=== PATIENT | female | born 1975 | race Hispanic/Latino ===

== ENCOUNTER 2017-10-04 08:57 | Emergency (ER) | payer MEDICAID, SELFPAY ==
[2017-10-04 08:57] VITALS: BP 136/104; PULSE 68; RESP 18; TEMP 36.6; O2SAT 96; BMI 34.4
--- NOTE | 2017-10-04 09:32 | ED.DCSUM_ITS ---
- ER Visit Summary Date of Service: 10/04/17 Chief Complaint: Upper extremity pain History of Present Illness: The patient is a 42 F who is right hand dominant presents with pain left upper extremity. She states the pain, which is chronic , got worse after carrying a 20 pound bag with her left upper extremity. There is no history of direct trauma. She denies paresthesia, anesthesia or motor weakness. She is reluctant to move the left upper extremity. She denies any chest discomfort or shortness of breath. She has no other complaints. She understands Urdu. Her responses were in Haitian. Son interpreted what she said for me. Based on review of old records there is a history of type 2 diabetes. She has no allergies to NSAIDs. She has no history of renal dysfunction. Last creatinine was 0.62. Physical Examination: Vital signs remarkable for blood pressure 136/100. She did not resisted any attempted passive range of motion by me. Axillary, median radial ulnar function intact. She is able to AB duct to 90?. She is able to internally and externally rotate at the shoulder. She is able to flex and extend at the elbow. She is able to supinate and pronate. There is no point tenderness appreciated. DTR 1+ at the biceps, brachialis and triceps. There is no pain in a radicular pattern. The pain shoots from her wrist to her shoulder. Heart is regular without murmur, gallop or rub. S1 and S2 are normal. Lungs are clear to auscultation with good movement of air bilaterally. Test Results: None were obtained, nor are any indicated Emergency Department Course and Treatment: Patient has musculoskeletal discomfort secondary to muscle strain. She received a dose of Naprosyn in department and a prescription for Naprosyn. She was informed if her pain is no better she should follow-up with Dr. Cruz. Treatment Plan: Outpatient follow-up as needed, appropriate home-going instructions and ice, rest and anti-inflammatory medication. Disposition: Discharged home with son Impression: Left upper extremity pain secondary to muscle strain This note was generated with [employer] software. It may contain incorrect words, spelling, and punctuation that were not noted in review of the chart prior to signing ED Disposition - Plan for ED Patient: Disposition: Home or Assisted Living Chief Complaint: Upper Extremity Injury Instructions: ED Strain Muscle Ext Prescriptions: Naproxen [Naprosyn] 500 mg PO BID #10 tab Referrals: Ministerio Irene MD [Primary Care Provider] - 3-5 Days if not improving
[2017-10-04] MEDS: Naproxen 250 MG Tablet 500 MG PO (09:50)
== END 2017-10-04 09:51 | disposition home or self-care (01) ==
PROVIDERS: Emergency Provider Emergency Medicine; Family Provider Family Medicine; PCP Family Medicine
DX: S46.912A Strain of unspecified muscle, fascia and tendon at shoulder and upper arm level, left arm, initial encounter (principal); X50.0XXA Overexertion from strenuous movement or load, initial encounter; Y93.9 Activity, unspecified; Y92.9 Unspecified place or not applicable; Y99.9 Unspecified external cause status; G89.29 Other chronic pain; E11.9 Type 2 diabetes mellitus without complications; Z79.899 Other long term (current) drug therapy
CPT/HCPCS: 99283

== ENCOUNTER 2018-07-27 12:24 | Emergency (ER) | payer MEDICAID, SELFPAY ==
[2018-07-27 12:24] VITALS: BP 134/72; PULSE 66; RESP 18; TEMP 36.3; O2SAT 98; BMI 35.4
--- NOTE | 2018-07-27 12:52 | RAD_ITS ---
STUDY: X-RAY - CERVICAL SPINE REASON FOR EXAM: Female, 43 years old. Fall. Neck pain. TECHNIQUE: 5 view(s) of the cervical spine were obtained. COMPARISON: None FINDINGS: Normal anterior atlantoaxial articulation. Normal odontoid process. Normal cervical lordosis. Normal vertebral bodies and endplates. There is minimal intervertebral disc space narrowing at C4-5 and C5-6 with small osteophytes. There is diffuse mild uncovertebral and facet sclerosis. The soft tissue structures are unremarkable. RAD/Cerv Spine 2 or 3 Views IMPRESSION: Mild cervical spondylosis with no acute abnormality. Electronically Signed: Dagoberto Gudino MD at 14:18 EST , Service support ,
--- NOTE | 2018-07-27 14:40 | ED.VISSUMM ---
- ER Visit Summary Date of Service: 07/27/18 Chief Complaint: [Fall and neck pain] History of Present Illness: The patient is a 43 F [presents to the emergency department complaining of a fall that occurred yesterday around 11 AM. Patient states that she slipped and fell in the snow and hit her head. There is no loss of consciousness. Patient initially did not feel that she was injured. Progressively patient developed more more discomfort in her neck. Patient also has some discomfort in the both wrists but states that she did not injure her wrist during the fall. Nuys any chest pain or abdominal pain. She denies any back pain otherwise.] Physical Examination: [HEENT-PERRLA, EOMI. Cranial nerves II through XII grossly intact. TMs clear. Mucous membranes moist. No adenopathy. Patient has mild diffuse C-spine tenderness on palpation. Patient has tenderness over the paraspinal musculature bilaterally. Patient has tenderness over the both sternocleidomastoids bilaterally. Cardiovascular-regular rate and rhythm without murmur or ectopy Lungs-clear to auscultation, chest wall stable without crepitus or subcu emphysema Abdomen-normoactive bowel sounds, soft, nontender, no rebound or rigidity, no peritoneal signs. Extremities-intact ?4, normal range of motion, normal pulses, atraumatic. Evaluation of both wrists reveals some mild diffuse tenderness. There is no soft tissue swelling. There is no ecchymosis or bruising. She has normal range of motion flexion extension of the wrist.] Test Results: [X-rays of the spine were obtained which were negative for fracture. Patient had some mild spondylosis.] Emergency Department Course and Treatment: [Patient was given a dose of ibuprofen.] Treatment Plan: [Patient given a prescription for ibuprofen and Flexeril.] Disposition: [Discharged home in stable condition. Advised to follow-up with primary care physician within next 5-7 days.] Impression: [Mechanical fall Cervical strain Bilateral wrist sprains] This note was generated with [employer] dictation software. It may contain incorrect words, spelling, and punctuation that were not noted in review of the chart prior to signing ED Disposition - Plan for ED Patient: Chief Complaint: Fall Referrals: Ministerio Irene MD [Primary Care Provider] -
--- NOTE | 2018-07-27 14:43 | ED.DCSUM_ITS ---
- ER Visit Summary Date of Service: 07/27/18 Chief Complaint: [Fall and neck pain] History of Present Illness: The patient is a 43 F [presents to the emergency department complaining of a fall that occurred yesterday around 11 AM. Patient states that she slipped and fell in the snow and hit her head. There is no loss of consciousness. Patient initially did not feel that she was injured. Progressively patient developed more more discomfort in her neck. Patient also has some discomfort in the both wrists but states that she did not injure her wrist during the fall. Nuys any chest pain or abdominal pain. She denies any back pain otherwise.] Physical Examination: [HEENT-PERRLA, EOMI. Cranial nerves II through XII grossly intact. TMs clear. Mucous membranes moist. No adenopathy. Patient has mild diffuse C-spine tenderness on palpation. Patient has tenderness over the paraspinal musculature bilaterally. Patient has tenderness over the both sternocleidomastoids bilaterally. Cardiovascular-regular rate and rhythm without murmur or ectopy Lungs-clear to auscultation, chest wall stable without crepitus or subcu emphysema Abdomen-normoactive bowel sounds, soft, nontender, no rebound or rigidity, no peritoneal signs. Extremities-intact ?4, normal range of motion, normal pulses, atraumatic. Evaluation of both wrists reveals some mild diffuse tenderness. There is no soft tissue swelling. There is no ecchymosis or bruising. She has normal range of motion flexion extension of the wrist.] Test Results: [X-rays of the spine were obtained which were negative for fracture. Patient had some mild spondylosis.] Emergency Department Course and Treatment: [Patient was given a dose of ibuprofen.] Treatment Plan: [Patient given a prescription for ibuprofen and Flexeril.] Disposition: [Discharged home in stable condition. Advised to follow-up with primary care physician within next 5-7 days.] Impression: [Mechanical fall Cervical strain Bilateral wrist sprains] This note was generated with [employer]ation software. It may contain incorrect words, spelling, and punctuation that were not noted in review of the chart p rior to signing ED Disposition - Plan for ED Patient: Chief Complaint: Fall Referrals: Ministerio Irene MD [Primary Care Provider] -
--- NOTE | 2018-07-27 14:43 | ED.DEP ---
ED Disposition - Plan for ED Patient: Chief Complaint: Fall Instructions: ED Mechanical Fall, ED Sprain Strain Neck, ED Sprain Wrist Prescriptions: Ibuprofen [Motrin] 800 mg PO TID PRN PRN #20 tab PRN Reason: Pain Cyclobenzaprine [Flexeril] 10 mg PO TID PRN #20 tab PRN Reason: Muscle Spasm Referrals: Ministerio Irene MD [Primary Care Provider] - 5-7 Days
[2018-07-27 14:51] VITALS: O2SAT 97
[2018-07-27] MEDS: Ibuprofen 600 MG Tablet PO (14:55)
[2018-07-27 14:56] VITALS: BP 125/87; PULSE 72; PULSE 78; RESP 16; O2SAT 97
--- OUTSIDE RECORDS SUMMARY | 2018-10-01 03:11 | XMS RPT_ITS ---
:1975 Author Organization OHIP Care Team Providers Name Role Phone NUNO IRENE Attending Unavailable NUNO IRENE Referring Unavailable SLIM CROW Attending Unavailable NUNO IRENE Referring Unavailable NUNO IRENE Attending Unavailable NUNO IRENE Attending Unavailable NUNO IRENE Referring Unavailable NUNO IRENE Referring Unavailable NUNO IRENE Attending Unavailable NUNO IRENE Attending Unavailable NUNO IRENE Referring Unavailable Ginger Dodson Attending Unavailable Finn Mayorga Referring Unavailable Nuno Irene Primary Care Unavailable Ginger Dodson Attending Unavailable Finn Mayorga Referring Unavailable Nuno Irene Primary Care Unavailable Ginger Dodson Attending Unavailable Finn Mayorga Referring Unavailable Nuno Irene Primary Care Unavailable Ginger Dodson Attending Unavailable Finn Mayorga Referring Unavailable Nuno Irene Primary Care Unavailable Nuno Irene Attending Unavailable Finn Mayorga Referring Unavailable Teto Nuno Primary Care Unavailable Ginger Dodson Attending Unavailable Finn Mayorga Referring Unavailable Teto Nuno Primary Care Unavailable [place], Nuno Primary Care Unavailable Melecio Bull Attending Unavailable TetoNuno varghese Primary Care Unavailable Dawit Galvan Attending Unavailable PROBLEMS PROBLEMS DATE TYPE CONDITION / CODE ATTENDING STATUS SOURCE 06/13/2018 Admitting Encntr screen Nuno Irene Active [facility] Diagnosis mammogram for System malignant neoplasm of Repository breast / Z12.31(ICD-10) 05/22/2018 Admitting Human Ginger Dodson Active [facility] Diagnosis immunodeficiency System virus [HIV] disease / Repository B20(ICD-10) 05/22/2018 Admitting Metabolic syndrome / Ginger Dodson Active [facility] Diagnosis E88.81(ICD-10) System Repository 05/22/2018 Admitting Mixed hyperlipidemia Ginger Dodson Active [facility] Diagnosis / E78.2(ICD-10) System Repository 05/22/2018 Admitting Encounter for Ginger Dodson Active [facility] Diagnosis immunization / System Z23(ICD-10) Repository 02/10/2017 Active Type 2 diabetes NA Active [place] mellitus without Clinic Main complications / [place] E11.9(ICD-10) Repository 10/29/2015 Active Human NA Active [place] immunodeficiency [facility] Main virus (HIV) disease / [place] B20(ICD-10) Repository 10/05/2017 Active Mixed hyperlipidemia NA Active [place] / E78.2(ICD-10) Clinic Main [place] Repository 08/10/2017 Admitting Allergic rhinitis, Ginger Dodson Active [facility] Diagnosis unspecified / System J30.9(ICD-10) Repository PROCEDURES PROCEDURES No Procedure Records FoundRESULTS RESULTS DISCHARGE INSTRUCTION Observed: 07/27/2018 Status: F Source: [place] 2:45 PM [facility] REPOSITORY [facility] Medical Records Department [address] [place] [address] Discharge Instruction 07/27/18 1443 MR#: [id number] Acct: [id number] Name: MAURA HALLMAN L Rep #: [id number] : 1975 43 From: Melecio Bull DO PCP: Nuno Irene MD Status: REG ER ED Disposition - Plan for ED Patient: Chief Complaint: Fall Instructions: ED Mechanical Fall, ED Sprain Strain Neck, ED Sprain Wrist Prescriptions: Ibuprofen [Motrin] 800 mg PO TID PRN PRN #20 tab PRN Reason: Pain Cyclobenzaprine [Flexeril] 10 mg PO TID PRN #20 tab PRN Reason: Muscle Spasm Referrals: Nuno Irene MD [Primary Care Provider] - 5-7 Days What to do if you have Problems For any increased pain, shortness of breath, bleeding, nausea or vomiting, chest pain, or any unexpected problems, contact your Primary Care Provider. Call [facility] ([phone]) or report to the closest Emergency Room. Call 911 if necessary. 07/27/18 1445 <Electronically signed by Melecio Bull DO> Date Melecio Bull DO Cosigner Signature (If Indicated): Date CC: Nuno Irene MD EMERGENCY DEPARTMENT Observed: 07/27/2018 Status: F Source: [place] SUMMARY 2:43 PM [facility] REPOSITORY [facility] Medical Records Department [address] [facility] [place] [address] Emergency Department Summary 07/27/18 1440 MR#: [id number] Acct: [id number] Name: MAURA HALLAMN Rep #: [id number] : 1975 43 From: Melecio Bull DO PCP: Nuno Irene MD Status: REG ER - ER Visit Summary Date of Service: 07/27/18 Chief Complaint: [Fall and neck pain] History of Present Illness: The patient is a 43 F [presents to the emergency department complaining of a fall that occurred yesterday around 11 AM. Patient states that she slipped and fell in the snow and hit her head. There is no loss of consciousness. Patient initially did not feel that she was injured. Progressively patient developed more more discomfort in her neck. Patient also has some discomfort in the both wrists but states that she did not injure her wrist during the fall. [place] any chest pain or abdominal pain. She denies any back pain otherwise.] Physical Examination: [HEENT-PERRLA, EOMI. Cranial nerves II through XII grossly intact. TMs clear. Mucous membranes moist. No adenopathy. Patient has mild diffuse C-spine tenderness on palpation. Patient has tenderness over the paraspinal musculature bilaterally. Patient has tenderness over the both sternocleidomastoids bilaterally. Cardiovascular-regular rate and rhythm without murmur or ectopy Lungs-clear to auscultation, chest wall stable without crepitus or subcu emphysema Abdomen-normoactive bowel sounds, soft, nontender, no rebound or rigidity, no peritoneal signs. Extremities-intact 4, normal range of motion, normal pulses, atraumatic. Evaluation of both wrists reveals some mild diffuse tenderness. There is no soft tissue swelling. There is no ecchymosis or bruising. She has normal range of motion flexion extension of the wrist.] Test Results: [X-rays of the spine were obtained which were negative for fracture. Patient had some mild spondylosis.] Emergency Department Course and Treatment: [Patient was given a dose of ibuprofen.] Treatment Plan: [Patient given a prescription for ibuprofen and Flexeril.] Disposition: [Discharged home in stable condition. Advised to follow-up with primary care physician within next 5-7 days.] Impression: [Mechanical fall Cervical strain Bilateral wrist sprains] This note was generated with [employer] dictation software. It may contain incorrect words, spelling, and punctuation that were not noted in review of the chart prior to signing ED Disposition - Plan for ED Patient: Chief Complaint: Fall Referrals: Nuno Irene MD [Primary Care Provider] - What to do if you have Problems For any increased pain, shortness of breath, bleeding, nausea or vomiting, chest pain, or any unexpected problems, contact your Primary Care Provider. Call [facility] ([phone]) or report to the closest Emergency Room. Call 911 if necessary. 07/27/18 1447 <Electronically signed by Melecio Bull DO> Date Melecio Bull DO Cosigner Signature (If Indicated): Date CC: Nuno Irene MD CERV SPINE 2 OR 3 Observed: 07/27/2018 Status: F Source: [place] VIEWS 12:52 PM [facility] REPOSITORY [facility] Imaging Services [address] [place] [address] Cerv Spine 2 or 3 Views MR#: [id number] Acct: [id number] Name: MAURA HALLMAN Rep #: [id number] : 1975 F 43 From: Dagoberto Gudino MD PCP: Nuno Irene MD Status: REG ER Study: Cerv Spine 2 or 3 Views Date of Exam: 07/27/18 Exam# [id number] Ordering Dr: Melecio Bull DO STUDY: X-RAY - CERVICAL SPINE REASON FOR EXAM: Female, 43 years old. Fall. Neck pain. TECHNIQUE: 5 view(s) of the cervical spine were obtained. COMPARISON: None FINDINGS: Normal anterior atlantoaxial articulation. Normal odontoid process. Normal cervical lordosis. Normal vertebral bodies and endplates. There is minimal intervertebral disc space narrowing at C4-5 and C5- 6 with small osteophytes. There is diffuse mild uncovertebral and facet sclerosis. The soft tissue structures are unremarkable. RAD/Cerv Spine 2 or 3 Views IMPRESSION: Mild cervical spondylosis with no acute abnormality. Electronically Signed: Dagoberto Gudino MD at 14:18 EST , Service support , CC: Melecio Bull DO; Nuno Irene MD Textile Engineer: Signed MG BREAST TOMOSYNTHESIS Observed: 06/13/2018 Status: F Source: Sphere 3d [facility] 12:00 AM SYSTEM REPOSITORY Patient Name: MAURA HALLMAN Mammography Exam Date/Time 06/13/2018 12:58:11 EST Exam MG Breast Tomosynthesis BI Scr Ordering Physician NELSON IRENE Accession Number [id number] CPT4 Codes 76541 (MG Breast Tomosynthesis Scr Bl), 95708 (MG MAMMO 2D SCREENING) Reason For Exam screening Report PATIENT HISTORY: No known family history of cancer. Patient has never smoked. Patient's BMI is 36.0. TIME SINCE LAST MAMMOGRAM: Last mammogram was performed 1 year and 6 months ago. REASON FOR EXAM: screening, asymptomatic. PROCEDURE: MG BREAST TOMOSYNTHESIS BL SCR: JUNE 13, 2018 - 2D/3D Procedure 3D Bilateral CC and MLO view(s) were taken. 2D Bilateral CC and MLO view(s) were taken. Prior study comparison: December 23, 2016, bilateral MG breast tomosynthesis bl scr performed at [facility]. November 20, 2015, bilateral MG mammogram digital screening performed at [facility]. TISSUE DENSITY: There are scattered fibroglandular densities. . FINDINGS: No suspicious masses, architectural distortions or suspiciously clustered microcalcifications are identified. There is no evidence of skin thickening or nipple retraction. There are no significant changes when compared with prior studies. Markings on images: BB's = Nipples; skin lesions [place] = Palpable Line = Scar 2D digital mammography and tomosynthesis imaging were performed and reviewed with CAD. ASSESSMENT: Category 1 Negative No mammographic evidence of malignancy. RECOMMENDATION: Routine screening mammogram of both breasts in 1 year. Report Dictated on Cancer Risk Assessment: This risk assessment is based on patient provided information collected in a risk survey taken at the time of this examination. Lifetime breast cancer risk: 9.5% - If greater than or equal to 20%, consider annual mammogram and annual screening Breast MRI or follow up in high risk clinic. Is the patient at elevated risk based on the HBOC criteria? No (Hereditary Breast and Ovarian Cancer) - If yes, consider genetic counseling and testing with high risk follow up. HNPCC mutation risk ([place]osta Syndrome): 1% - if greater than or equal to 5%, consider genetic counseling, testing and screening colonoscopy. Final Signed Date and Time: 06/13/2018 5:04 pm Signed by: MD GREEN JENNIFER R HEMOGLOBIN A1C Collected: 06/04/2018 Status: F Source: [place] 10:09 AM [facility] REPOSITORY TYPE CODE TESTS RESULT OUT OF REFERENCE UNITS RANGE LAB HGBA1C 4.3-5.6 % High Hemoglobin A1c 7.0 Result Comment: [place] Diabetes Association guidelines indicate that patients with HgbA1c in the range 5.7-6.4% are at increased risk for development of diabetes, and intervention by lifestyle modification may be beneficial. HgbA1c greater or equal to 6.5% is considered diagnostic of diabetes. LAB HBA0 mg/dL Est. Average Glucose 154 Result Comment: eAG: (Estimated average glucose) is a calculated value from HgbA1c and is customer service representative teller of the average blood glucose level in the last 2-3 month period. Performed By: #### HBA1C, LIPB #### [facility] [address] [place], [place] [address] LIPID PANEL, BASIC Collected: 06/04/2018 Status: F Source: [place] 10:09 AM [facility] REPOSITORY TYPE CODE TESTS RESULT OUT OF REFERENCE UNITS RANGE LAB CHOL <200 mg/dL Cholesterol 164 Result Comment: <200 mg/dL, Desirable 200-239 mg/dL, Borderline high >239 mg/dL, High LAB TRIGLY <150 mg/dL Triglyceride 132 Result Comment: <150 mg/dL, Normal 150-199 mg/dL, Borderline high 200-499 mg/dL, High >499 mg/dL, Very high LAB HDL >39 mg/dL HDL-Cholesterol 41 Result Comment: 40-59 mg/dL, Acceptable >59 mg/dL, High: Negative risk factor for coronary heart disease <40 mg/dL, Low: Positive risk factor for coronary heart disease LAB LDL <100 mg/dL LDL-Cholesterol 97 Result Comment: <100 mg/dL, Optimal 100-129 mg/dL, Near optimal/above optimal 130-159 mg/dL, Borderline high 160-189 mg/dL, High >189 mg/dL, Very high Secondary prevention optimal LDL Cholesterol levels are recommended to be < 70 mg/dL LAB NONHDL <130 mg/dL Non HDL Cholesterol 123 Result Comment: <130 mg/dL, Optimal 130-159 mg/dL, Near optimal/above optimal 160-189 mg/dL, Borderline high 190-219 mg/dL, High >219 mg/dL, Very high Secondary prevention optimal non HDL Cholesterol levels are recommended to be < 100 mg/dL LAB FT hrs Fasting Time 12 LAB VLDL <30 mg/dL VLDL Cholesterol 26 LAB TCHDL <5.10 TC:HDL Ratio 4.00 LAB LDLHDL <2.54 LDL:HDL Ratio 2.37 Result Comment: Reference: 1. National Cholesterol Education Program ATP III Guideline At-A-Glance Quick Desk Reference: National Heart, Lung, and Blood [place]. National Institutes of Health. 2001: NIH Publication No. 01-3305. 2. An International Atherosclerosis Society position paper: global recommendations for the management of dyslipidemia: executive summary, Atherosclerosis. 2014: 232(2):410-413. Performed By: #### HBA1C, LIPB #### [facility] [address] [place], [place] [address] PROGRESS Observed: 05/30/2018 Status: COMPLETED Source: [place] 11:20 AM [facility] REPOSITORY O ID: [id number] Author: Nuno Irene Service: (none) Author Type: Physician Type: Progress Notes Filed: 05/30/2018 11:44 AM Note Text: Patient presents with: Diabetes: follow up HPI: Patient presents today for office visit for follow up. DM:sugars are doing well. She is juicing with aloe vera. Feels well. Not checking at home. ID:saw Dr. Dodson. Numbers are doing well. Tolerating meds. Recently had cold symptoms the last day. Some congestion. Was slightly chilly. Her right ear feels slightly irritated. Mild cough yesterday. No sore throat. HLD:using the lipid medicine. MEDICATIONS: Current Outpatient Prescriptions: metFORMIN (GLUCOPHAGE) 500 mg tablet Take 2 tablets by mouth daily with breakfast. upknulrhmrbk-lrzjvtqieu-pxwnifrhshqbw-tenofovir alafenamide (GENVOYA) [phone] mg per tablet Take 1 tablet by mouth daily with food. PRAVASTATIN SODIUM (PRAVASTATIN ORAL) Take 20 mg by mouth once daily. No current facility-administered medications for this visit. ALLERGIES: ALLERGIES No Known Allergies PAST MEDICAL HISTORY Diagnosis Date - Diabetes (HCC) - HIV (human immunodeficiency virus infection) (HCC) - Hyperlipidemia PAST SURGICAL HISTORY Procedure Laterality Date - DELIVERY ONLY , low transverse x 2 FAMILY HISTORY Problem Relation Age of Onset - Diabetes Mother - Stroke Father Social History Marital status: Single Spouse name: Years of education: Number of children: 2 Social History Main Topics Smoking status: Never Smoker Smokeless tobacco: Never Used Alcohol use: No Drug use: No Sexual activity: No Reviewed current medications, allergies, past medical history, surgical history, family history and social history today. REVIEW OF SYSTEMS CARDIOVASCULAR: Negative for chest pain, leg swelling, hypertension, CHF or palpitations GI: No nausea, vomiting, or diarrhea : No history of dysuria, frequency or incontinence All other reviewed and negative other than HPI. HEALTH MAINTENANCE: Reviewed health maintenance issues today and recommended the following in detail. Had a flu shot ADULT PREVNAR-13 due on 1994 VITALS: BP 120/62 Pulse 84 Temp 36.6 ?C (97.8 ?F) (Tympanic) Resp 20 Wt 89.9 kg (198 lb 3.2 oz) BMI 37.45 kg/m? Last 4 Encounter Wt Readings: Date: Wt: 05/30/2018 89.9 kg (198 lb 3.2 oz) 01/22/2018 91.2 kg (201 lb) 10/05/2017 93 kg (205 lb) 03/02/2017 90.9 kg (200 lb 6.4 oz) PHYSICAL EXAMINATION: General appearance: Well appearing, alert, in no acute distress, well-hydrated, well nourished. Skin: Skin color, texture, turgor normal, no suspicious rashes or lesions Head: Normocephalic, no masses, lesions, tenderness or abnormalities Mouth and throat negative. Ears: right ear canal is slightly red and painful when touching. tms ar eclear. Lungs: lungs clear to auscultation. No wheezing, rhonchi, rales Heart: RRR without murmur, gallop, or rubs. No ectopy Abdomen: Normal abdominal exam, Abdomen soft, non-tender. Bowel sounds normal. No masses, organomegaly Extremities: No deformities, edema, skin discoloration, clubbing or cyanosis. Good capillary refill. Musculoskeletal: No joint swelling, deformity, or tenderness Peripheral pulses: Normal ASSESSMENT/PLAN: 1. Mixed hyperlipidemia - ICD9: 272.2, ICD10: E78.2 (primary diagnosis) - to be determined upon return of lab results - Continue current medication. - LIPID PANEL BASIC 2. Controlled type 2 diabetes mellitus without complication, without long-term current use of insulin ([facility]) - ICD9: 250.00, ICD10: E11.9 Controlled. - Continue current medications - METFORMIN 500 MG TABLET - HGB A1C 3. HIV (human immunodeficiency virus infection) ([facility]) - ICD9: V08, ICD10: B20 - continue to follow with ID 4. URI, acute - ICD9: 465.9, ICD10: J06.9 - Discussed viral etiology and rationale for treatment. - Symptomatic treatment with prn analgesia - Supportive care with fluids and rest - Follow up in one week if symptoms persist or sooner if worsening of symptoms 5. Need for vaccination - ICD9: V05.9, ICD10: Z23 - PNEUMOCOCCAL-13 VACCINE PCV-13 6. Acute otitis externa of right ear, unspecified type - ICD9: 380.10, ICD10: H60.501 - Discussed risks and benefits of new medication with the patient. Advised them to call if any side effects or questions. - keep ear dry. - Call if symptoms worsen at all or if not better in one to two weeks - OTLNHAQS-ECUNQCAYF-AKVCTGGZC 3.5 MG-10,000 UNIT/ML-1 % EAR DROPS,SUSP Nuno Irene MD CNOV Observed: 05/30/2018 Status: COMPLETED Source: [place] 10:40 AM [facility] REPOSITORY Office Visit (FAMPWS) MAURA HALLMAN ([id number]) 1975 [facility] Date Time Provider Department 05/30/18 10:40 AM NUNO IRENE During your visit today, we recorded the following information about you: Temperature Pulse Respiration Blood pressure 97.8 degrees 84/minute 20/minute 120/62 Weight 89.9 kg Nuno Irene MD 05/30/2018 11:44 AM Signed Patient presents with: Diabetes: follow up HPI: Patient presents today for office visit for follow up. DM:sugars are doing well. She is juicing with aloe vera. Feels well. Not checking at home. ID:saw Dr. Dodson. Numbers are doing well. Tolerating meds. Recently had cold symptoms the last day. Some congestion. Was slightly chilly. Her right ear feels slightly irritated. Mild cough yesterday. No sore throat. HLD:using the lipid medicine. MEDICATIONS: Current Outpatient Prescriptions: metFORMIN (GLUCOPHAGE) 500 mg tablet Take 2 tablets by mouth daily with breakfast. ccxzvtgdpzny-enhnuiyywy-jenggxhwvyiyj-tenofovir alafenamide (GENVOYA) [phone] mg per tablet Take 1 tablet by mouth daily with food. PRAVASTATIN SODIUM (PRAVASTATIN ORAL) Take 20 mg by mouth once daily. No current facility-administered medications for this visit. ALLERGIES: ALLERGIES No Known Allergies PAST MEDICAL HISTORY Diagnosis Date - Diabetes (HCC) - HIV (human immunodeficiency virus infection) (HCC) - Hyperlipidemia PAST SURGICAL HISTORY Procedure Laterality Date - DELIVERY ONLY , low transverse x 2 FAMILY HISTORY Problem Relation Age of Onset - Diabetes Mother - Stroke Father Social History Marital status: Single Spouse name: Years of education: Number of children: 2 Social History Main Topics Smoking status: Never Smoker Smokeless tobacco: Never Used Alcohol use: No Drug use: No Sexual activity: No Reviewed current medications, allergies, past medical history, surgical history, family history and social history today. REVIEW OF SYSTEMS CARDIOVASCULAR: Negative for chest pain, leg swelling, hypertension, CHF or palpitations GI: No nausea, vomiting, or diarrhea : No history of dysuria, frequency or incontinence All other reviewed and negative other than HPI. HEALTH MAINTENANCE: Reviewed health maintenance issues today and recommended the following in detail. Had a flu shot ADULT PREVNAR-13 due on 1994 VITALS: BP 120/62 Pulse 84 Temp 36.6 ?C (97.8 ?F) (Tympanic) Resp 20 Wt 89.9 kg (198 lb 3.2 oz) BMI 37.45 kg/m? Last 4 Encounter Wt Readings: Date: Wt: 05/30/2018 89.9 kg (198 lb 3.2 oz) 01/22/2018 91.2 kg (201 lb) 10/05/2017 93 kg (205 lb) 03/02/2017 90.9 kg (200 lb 6.4 oz) PHYSICAL EXAMINATION: General appearance: Well appearing, alert, in no acute distress, well-hydrated, well nourished. Skin: Skin color, texture, turgor normal, no suspicious rashes or lesions Head: Normocephalic, no masses, lesions, tenderness or abnormalities Mouth and throat negative. Ears: right ear canal is slightly red and painful when touching. tms ar eclear. Lungs: lungs clear to auscultation. No wheezing, rhonchi, rales Heart: RRR without murmur, gallop, or rubs. No ectopy Abdomen: Normal abdominal exam, Abdomen soft, non-tender. Bowel sounds normal. No masses, organomegaly Extremities: No deformities, edema, skin discoloration, clubbing or cyanosis. Good capillary refill. Musculoskeletal: No joint swelling, deformity, or tenderness Peripheral pulses: Normal ASSESSMENT/PLAN: 1. Mixed hyperlipidemia - ICD9: 272.2, ICD10: E78.2 (primary diagnosis) - to be determined upon return of lab results - Continue current medication. - LIPID PANEL BASIC 2. Controlled type 2 diabetes mellitus without complication, without long-term current use of insulin ([facility]) - ICD9: 250.00, ICD10: E11.9 Controlled. - Continue current medications - METFORMIN 500 MG TABLET - HGB A1C 3. HIV (human immunodeficiency virus infection) ([facility]) - ICD9: V08, ICD10: B20 - continue to follow with ID 4. URI, acute - ICD9: 465.9, ICD10: J06.9 - Discussed viral etiology and rationale for treatment. - Symptomatic treatment with prn analgesia - Supportive care with fluids and rest - Follow up in one week if symptoms persist or sooner if worsening of symptoms 5. Need for vaccination - ICD9: V05.9, ICD10: Z23 - PNEUMOCOCCAL-13 VACCINE PCV-13 6. Acute otitis externa of right ear, unspecified type - ICD9: 380.10, ICD10: H60.501 - Discussed risks and benefits of new medication with the patient. Advised them to call if any side effects or questions. - keep ear dry. - Call if symptoms worsen at all or if not better in one to two weeks - JMUSUXII-ZOJEWDVUJ-VORCEKPHG 3.5 MG-10,000 UNIT/ML-1 % EAR DROPS,SUSP Nuno Irene MD Referring Provider: SELF [200] Allergies As of Date: 05/30/2018 (No Known Allergies) Date Reviewed: 05/30/2018 Reviewed by: Melonie Adams Ma - Fully Assessed Reason for Visit: Diabetes [34] Cmt: follow up Primary Visit Diagnosis:Mixed hyperlipidemia [E78.2] Other Visit Diagnoses:Controlled type 2 diabetes mellitus without complication, without long-term current use of insulin ([facility]) [E11.9] HIV (human immunodeficiency virus infection) ([facility]) [B20] URI, acute [J06.9] Need for vaccination [Z23] Acute otitis externa of right ear, unspecified type [H60.501] Order(s):metFORMIN (GLUCOPHAGE) 500 mg tabletTake 2 tablets by mouth daily with breakfast.Disp: 180 tabletRfl: 1 PNEUMOCOCCAL-13 VACCINE PCV-13 [[id number]] Order #: [id number] LIPID PANEL BASIC [SQLIPB] Order #: [id number] FUTURE HGB A1C [ROEOU0U] Order #: [id number] FUTURE halkiwye-xfzkqcqwq-rhrnrkyzfipqsr (CORTISPORIN) 3.5-10,000-1 mg/mL-unit/mL-% otic suspensionUse 3 Drops in the right ear four times daily.Disp: 1 BottleRfl: 0 Prescriptions as of 05/30/2018 Sig: METFORMIN 500 MG TABLET Take 2 tablets by mouth daily* ELVITEG 150 MG-COB 150 MG-EMT* Take 1 tablet by mouth daily * PRAVASTATIN ORAL Take 20 mg by mouth once marshall* OWNDZAHN-PRTSXDEED-JVSCASLIN * Use 3 Drops in the right ear * Problem List As Of Date 05/30/2018 Noted Resolved Prediabetes [R73.03] INVALID FOR*02/10/2017 HIV (human immunodeficiency virus infection) (H* Hyperlipidemia [E78.5] Memory loss [R41.3] INVALID FOR* Controlled type 2 diabetes mellitus without com*INVALID FOR* DM (diabetes mellitus) (HCC) [E11.9] 10/05/2017 Eyelid lesion, benign [H02.9] INVALID FOR* More... Prescriptions ordered this encounter Disp Refills Start End METFORMIN 500 MG TABLET 180 * 1 05/30/2018 08/28/2018 Route: ORAL Sig: Take 2 tablets by mouth daily with breakfast. [id number] 3.5 MG-* 1 Mek[place]* 0 05/30/2018 Route: RIGHT EAR Sig: Use 3 Drops in the right ear four times daily. Medications Discontinued During This Encounter erythromycin ophthalmic ointment 1 Tu* 0 10/18/2017 05/30/2018 Route: LEFT EYE Sig: Use 1 application in the left eye once daily. Disc: Course of therapy completed omeprazole (PRILOSEC) 20 mg capsule 30 c* 3 02/08/2017 05/30/2018 Route: ORAL Sig: Take 1 capsule by mouth daily before breakfast. 1/2 hr before meal. Disc: Course of therapy completed loratadine 10 mg cap 05/30/2018 Class: Historical Med Route: ORAL Sig: Take by mouth. Disc: Course of therapy completed metFORMIN (GLUCOPHAGE) 500 mg tablet 180 * 1 02/13/2018 05/30/2018 Route: ORAL Sig: Take 2 tablets by mouth daily with breakfast. Disc: Reason for discontinue is not on file. Disposition: Return in about 3 months (around 08/30/2018). Follow-up and Disposition History Recorded Encounter Status:Closed by NUNO IRENE MD on 05/30/18 URINALYSIS,MACRO Collected: 05/07/2018 Status: F Source: [place] [facility] 12:49 PM SYSTEM REPOSITORY TYPE CODE TESTS RESULT OUT OF REFERENCE UNITS RANGE LAB APPUR Clear NA Appearance Clear LAB COLUR Lt. Yellow NA Color Yellow LAB USG 1.005-1.030 NA Specific Normal [place],Urine 1.015 LAB UPH 5.0-8.0 NA pH,Urine Normal 7.0 LAB ULUK Negative NA Leukocytes NEG LAB UNIT Negative NA Nitrites NEG LAB UPRO Negative mg/dL Total Protein,Urine NEG LAB UGLU Negative mg/dL Glucose,Urine NORM LAB UKET Negative mg/dL Ketone,Urine NEG LAB UURO 0-1 mg/dL Urobilinogen NORM LAB UBIL Negative NA Bilirubin,Ur NEG LAB UBLD Negative {RBC}/uL Occult Blood,Ur NEG Performed By: #### UAMAC #### [employer] [address] [place] [id number] HEMOGRAM W/ AUTODIFF Collected: 05/07/2018 Status: F Source: [place] 12:18 PM SYSTEM REPOSITORY TYPE CODE TESTS RESULT OUT OF REFERENCE UNITS RANGE LAB IWBC 3.6-10.7 10*3/uL WBC Normal 7.9 LAB RBC 3.80-5.20 10*6/uL RBC Normal 4.62 LAB HGB 11.7-16.0 g/dL Hemoglobin Normal 12.8 LAB HCT 35.0-47.0 % Hematocrit Normal 37.5 LAB MCV 79.0-98.0 fL MCV Normal 81.1 LAB MCH 26.0-34.0 pg MCH Normal 27.7 LAB MCHC 32.0-36.0 % MCHC Normal 34.1 LAB RDW 11.5-14.5 % RDW High 15.5 LAB PLT 140-440 10*3/uL Platelet Normal 218 LAB MPV 7.4-10.4 fL MPV Normal 8.8 LAB GRAN% 40.0-80.0 % Granulocytes Normal 67.6 LAB LYMP% 20.0-40.0 % Lymphocytes Normal 24.8 LAB MONO% 2.0-10.0 % Monocytes Normal 4.4 LAB EOS% 1.0-6.0 % Eosinophils Normal 2.7 LAB BAS% 0.0-2.0 % Basophils Normal 0.5 LAB ANC 1.8-7.0 10*3/uL Abs Normal Neutrophile Cnt 5.4 LAB ALC 1.0-4.3 10*3/uL Abs Lymph Cnt Normal 2.0 LAB AMC 0.0-0.8 10*3/uL Abs Monocyte Normal Cnt 0.3 LAB AEC 0.0-0.5 10*3/uL Abs Eosin Cnt Normal 0.2 LAB ABC 0.0-0.2 10*3/uL Abs Baso Cnt Normal 0.0 Performed By: #### HEMDF, LIPD2, CMP3, CD4, HIVQ #### [employer] [address] [place] [phone] LIPID PANEL Collected: 05/07/2018 Status: F Source: [facility] 12:18 PM SYSTEM REPOSITORY TYPE CODE TESTS RESULT OUT OF RANGE REFERENCE UNITS LAB 3CHOL < 200 mg/dL Cholesterol Abnormal 214 LAB 3TRIG <150 mg/dL Abnormal Triglyceride 189 LAB HDLC 40-60 mg/dL Normal HDL Cholesterol 48 LAB LDL4 <100 mg/dL Low Density Abnormal Lipoprotein 128 LAB CHLHD NA Chol/HDL 4 Result Comment: Ref Range: < 3 Low Risk for CHD 3-6 Mod Risk for CHD > 6 High Risk for CHD Performed By: #### HEMDF, LIPD2, CMP3, CD4, HIVQ #### [facility] [employer] [address] [phone] COMP METABOLIC PANEL Collected: 05/07/2018 Status: F Source: [place] 12:18 PM SYSTEM REPOSITORY TYPE CODE TESTS RESULT OUT OF RANGE REFERENCE UNITS LAB NA3 137-145 mmol/L Sodium Normal 138 LAB K3 3.5-5.1 mmol/L Normal Potassium 4.4 LAB CL3 98-107 mmol/L Chloride Normal 102 LAB CO23 22-30 mmol/L Carbon Normal Dioxide 25 LAB ANIN3 NA Anion Gap 10 LAB GLUC3 70-100 mg/dL High Glucose 130 LAB BUN3 7-20 mg/dL Urea Normal Nitrogen 10 LAB CRET3 0.52-1.25 mg/dL Low Creatinine 0.49 LAB GF3BR >60 mL/min eGFR > 60.0 LAB GF3WR >60 mL/min eGFR OTHER > 60.0 Result Comment: Source- MDRD equation with creatinine calibration to IDMS(NKDEP) eGFR not recommended for drug dose adjustment LAB CA3 8.4-10.4 mg/dL Calcium Normal 9.3 LAB ALB3 3.5-5.0 g/dL Albumin, Serum Normal 4.5 LAB TP3 6.3-8.2 g/dL Total Protein Normal 7.2 LAB BILT3 0.2-1.3 mg/dL Normal Bilirubin,Total 0.4 LAB ALKP3 38-126 U/L Alkaline Normal Phosphatase 119 LAB ALT3 13-69 U/L ALT (SGPT) Normal 61 LAB AST3 15-46 U/L AST (SGOT) Normal 35 Performed By: #### HEMDF, LIPD2, CMP3, CD4, HIVQ #### [facility] [employer] [facility] [address] [place] [address] CD4 PROFILE Collected: 05/07/2018 Status: F Source: [facility] 12:18 PM SYSTEM REPOSITORY TYPE CODE TESTS RESULT OUT OF RANGE REFERENCE UNITS LAB CD3% 61.0-83.0 % Normal CD3% 75.5 LAB CD3A 744-3556 /uL Normal CD3 Absolute 1290 Cnt LAB CD4% 32.5-62.0 % Normal CD3/CD4%: 42.3 LAB CD4A 390-2782 /uL Normal CD3/CD4 723 Absolute Cnt Performed By: #### HEMDF, LIPD2, CMP3, CD4, HIVQ #### [employer] [facility] [address] [phone] HIV RNA QUANT Collected: 05/07/2018 Status: F Source: [facility] (VIRAL LOAD) 12:18 PM SYSTEM REPOSITORY TYPE CODE TESTS RESULT OUT OF RANGE REFERENCE UNITS LAB HIVC <20 {copies}/mL Normal HIV NONE DETECTED RNA Quant LAB HIVL <1.30 {Log_copies }/mL Normal HIV NONE DETECTED RNA Quant Result Comment: The linear detection limit for this assay is 20 HIV Copies/mL. A result of <20 Copies (<1.30 Log Copies) indicates that HIV was detected, but at a level below the linear cutoff. A result of None Detected means that no HIV-1 was detected. This test is performed via rtPCR methodology. Performed By: #### HEMDF, LIPD2, CMP3, CD4, HIVQ #### [facility] [address] [phone] XR CHEST 2V FRONTAL/LAT Observed: 02/12/2018 Status: F Source: [place] 10:40 AM [facility] REPOSITORY * * *Final Report* * * DATE OF EXAM: Feb 12 2018 10:40AM WOX [id number] - XR CHEST 2V FRONTAL/LAT / PROCEDURE REASON: Human immunodeficiency virus (HIV) disease * * * * Physician Interpretation * * * * PA and lateral views of the chest are reviewed without previous comparison films. The cardiac size is not enlarged. The lung jimenez are clear. There is no evidence of pleural fluid. The bony thorax appears intact. IMPRESSION: No acute process. Textile Engineer: PSCB Transcribe Date/Time: Feb 12 2018 11:18A Dictated by : FLYNN ABDI MD This examination was interpreted and the report reviewed and electronically signed by: FLYNN ABDI MD on Feb 12 2018 11:18AM EST [id number] Observed: 02/12/2018 Status: COMPLETED Source: [place] 10:29 AM [facility] REPOSITORY HNO ID: [id number] Author: Glory Ferreira (Rt) Xochilt Tolbert Service: (none) Author Type: Portfolio Analyst Type: Progress Notes Filed: 02/12/2018 10:40 AM Note Text: Radiology Service Progress Note PATIENT NAME: Maura Hallman DATE OF SERVICE: February 12, 2018 TIME: 10:29 AM PATIENT IDENTITY VERIFICATION COMPLETED USING TWO (2) METHODS: Patient confirmed name verbally and Date of . PATIENT GENDER DATA: Female. status: : No status: NO. PATIENT RELEVANT IMPLANT DATA REVIEWED: Not Applicable RADIOLOGY DEPARTMENT: General X-ray: Exam(s) Completed: Chest X-Ray PERIPHERAL IV DATA: Not applicable SIGNED BY: RT Zara February 12, 2018 10:29 AM CBC AND DIFFERENTIAL Collected: 02/12/2018 Status: F Source: [place] 10:16 AM [facility] REPOSITORY TYPE CODE TESTS RESULT OUT OF REFERENCE UNITS RANGE LAB WBC 3.70-11.00 k/uL WBC 7.94 LAB RBC 3.90-5.20 m/uL RBC 4.56 LAB HGB 11.5-15.5 g/dL Hemoglobin 12.1 LAB HCT 36.0-46.0 % Hematocrit 39.6 LAB MCV 80.0-100.0 fL MCV 86.8 LAB MCH 26.0-34.0 pG MCH 26.5 LAB MCHC 30.5-36.0 g/dL MCHC 30.6 LAB RDWCV 11.5-15.0 % RDW-CV 14.3 LAB PLTCT 150-400 k/uL Platelet Count 233 LAB MPV 9.0-12.7 fL MPV 10.4 LAB ANEUT % Neut% 69.4 LAB AANEUT 1.45-7.50 k/uL Abs Neut 5.49 LAB ALYMP % Lymph% 23.7 LAB AALYMP 1.00-4.00 k/uL Abs Lymph 1.88 LAB AMONO % [place]% 4.4 LAB AAMONO <0.87 k/uL Abs [place] 0.35 LAB AEOS % Eosin% 2.0 LAB AAEOS <0.46 k/uL Abs Eosin 0.16 LAB ABASO % Baso% 0.5 LAB AABASO <0.11 k/uL Abs Baso 0.04 LAB AUNRBC 0 /100 WBC NRBCs 0.0 LAB ABNRBC <0.01 k/uL Absolute nRBC <0.01 LAB DTYP DTYPE Auto Diff Performed By: #### CBCDIF, HBA1C, CMP, HIVRNA #### [facility] [employer] [address] [id number] HEMOGLOBIN A1C Collected: 02/12/2018 Status: F Source: [place] 10:16 AM [facility] REPOSITORY TYPE CODE TESTS RESULT OUT OF REFERENCE UNITS RANGE LAB HGBA1C 4.3-5.6 % High Hemoglobin A1c 7.4 LAB HBA0 mg/dL Est. Average Glucose 166 Result Comment: eAG: (Estimated average glucose) is a calculated value from HgbA1c and is customer service representative teller of the average blood glucose level in the last 2-3 month period. Performed By: #### CBCDIF, HBA1C, CMP, HIVRNA #### [facility] [employer] [address] [address] COMP METABOLIC PANEL Collected: 02/12/2018 Status: F Source: [place] 10:16 AM [facility] REPOSITORY TYPE CODE TESTS RESULT OUT OF REFERENCE UNITS RANGE LAB TP 6.3-8.0 g/dL Protein, Total 7.2 LAB ALB 3.9-4.9 g/dL Albumin 4.1 LAB CA 8.5-10.2 mg/dL Calcium, Total 9.4 LAB TBIL 0.2-1.3 mg/dL Bilirubin, Total 0.3 LAB ALKP 32-117 U/L Alkaline Phosphatase 111 LAB AST 13-35 U/L AST 30 LAB GLU 74-99 mg/dL Glucose High 133 Result Comment: The [place] Diabetes Association (ADA) provides guidance for cutoff values for fasting glucose and random glucose. The ADA defines fasting as no caloric intake for at least 8 hours. Fas ting plasma glucose results between 100 to 125 mg/dL indicate increased risk for diabetes (prediabetes). Fasting plasma glucose results greater than or equal to 126 mg/dL meet the criteria for diagnosis of diabetes. In the absence of unequivocal hyperglycemia, results should be confirmed by repeat testing. In a patient with classic symptoms of hyperglycemia or hyperglycemic crisis, random plasma glucose results greater than or equal to 200 mg/dL meet the criteria for diagnosis of diabetes. Reference: Standards of Medical Care in Diabetes 2016, [place] Diabetes Association. Diabetes Care. 2016.39(Suppl 1). LAB BUN 7-21 mg/dL BUN 9 LAB CRET 0.58-0.96 mg/dL Low Creatinine 0.55 LAB NA 136-144 mmol/L Sodium 139 LAB K 3.7-5.1 mmol/L Potassium 4.4 LAB CL 97-105 mmol/L Chloride 102 LAB CO2 22-30 mmol/L CO2 26 LAB AGAP 9-18 mmol/L Anion Gap 11 LAB ALT 7-38 U/L ALT High 45 LAB GFRAA eGFR- Amer. >60 LAB GFRNAA . eGFR-All Other Races >60 Result Comment: eGFR (Estimated GFR) Units of measure: mL/min/1.73 meters squared eGFR is derived from the reexpressed MDRD Study equation using the following parameters: serum creatinine, age, gender and race. The creatinine assay has been calibrated to be traceable to IDMS. An eGFR <60 mL/min/1.73m2 for >3 months is consistent with chronic kidney disease. Refer to KDOQI guidelines for clinical interpretation. In patients with unstable renal function, e.g. those with acute kidney injury, the eGFR may not accurately reflect actual GFR. Performed By: #### CBCDIF, HBA1C, CMP, HIVRNA #### [facility] [employer] [address] [place] [phone] HIV QUANT RNA BY Collected: 02/12/2018 Status: F Source: [place] [facility] 10:16 AM [facility] REPOSITORY TYPE CODE TESTS RESULT OUT OF RANGE REFERENCE UNITS LAB HIVRNA copies/mL Detectable Abnormal for HIV-1 RNA by Alert HIV Quant PCR, <20 RNA by PCR copies/mL, not quantifiable Result Comment: INTERPRETATION: Positive for HIV-1 RNA by PCR Linear range of assay: 20 copies/mL to 10,000,000 copies/ml. (NOTE) HIV Information: [place] Rev. Code 3701.243(E): This information has been disclosed to you from confidential records protected from disclosure by state law. You shall make no further disclosure of this information without the specific, written, and informed release of the individual to whom it pertains, or as otherwise permitted by state law. A general authorization for the release of medical or other information is not sufficient for the purpose of the release of HIV test results or diagnoses. Performed By: #### CBCDIF, HBA1C, CMP, HIVRNA #### [facility] [employer] [address] [place], [place] [address] IMMUNODEFICIENCY CDC Collected: 02/12/2018 Status: F Source: [place] 10:15 AM [facility] REPOSITORY TYPE CODE TESTS RESULT OUT OF REFERENCE UNITS RANGE LAB HCD3P 60-89 % 73 CD3+ T Cell % LAB HCD3N 958-2388 Cells/uL 1346 CD3+ T Cell No. LAB HCD4P 34-61 % 40 CD4+CD3+ T Cell % LAB HCD4N 533-1674 Cells/uL 735 CD4+CD3+ T Cell No. LAB HCD8P 10-41 % 31 CD3+CD8+ T Cell % LAB HCD8N 175-958 Cells/uL 579 CD3+CD8+ T Cell No. LAB HCD19P 5-22 % 22 CD19+ B Cell % LAB HCD19N 75-660 Cells/uL 400 CD19+ B Cell No. LAB HNKP 5-25 % 5 NK Cell % LAB HNKN 102-565 Cells/uL 97 Low NK Cell No. LAB H48RAT 1.10-3.25 1.27 CD4/CD8 Ratio LAB HCOMNT Clinical interpretation of Immunodef. lymphocyte subsets Comment must be made with caution. Relative and absolute values may be profoundly affected by immunosuppressive or cytotoxic therapy, and be abnormal in a wide variety of infectious, inflammatory, autoimmune and neoplastic disorders. Result Comment: The following number of cluster designated antibodies were used for the definition of the above reported populations: CD3, CD4, CD8, CD16, CD19, and CD56. This test was developed and its performance characteristics determined by [facility] [place] ([facility]). It has not been cleared or approved by the FDA. [facility] is regulated under CLIA as qualified to perform high-complexity testing. This test is used for clinical purposes. It should not be regarded as investigational or for research. Performed By: #### IMMDEF #### [facility] [employer] [address] [place], [place] [address] PROGRESS Observed: 02/12/2018 Status: COMPLETED Source: [place] 9:19 AM [facility] REPOSITORY HNO ID: [id number] Author: Nuno Irene Service: (none) Author Type: Physician Type: Progress Notes Filed: 02/12/2018 9:59 AM Note Text: Patient presents with: Sore Throat Fever HPI: Patient presents today for office visit for follow up. Started about 1 week ago, 3 days it has gotten worse. Has green mucus in the throat, painful. Itching in her ears.. A little cough, but not much. Is currently taking Tylenol to help, 2 tablets of extra strength (500mg?). Not quite sure if she has been around any one that was sick. Nursing Notes: Melonie Adams Ma 02/12/2018 9:07 AM Signed DURATION OF SYMPTOMS: Began 1 weeks ago ONSET OF SYMPTOMS: Gradual FEVER: Not checked, but feel like she has one BODYACHES: Mild TIREDNESS: Mild HEADACHE: No EAR SYMPTOMS: itchy STUFFY NOSE: Yes POST NASAL DRIP: Yes SNEEZING: No SORE THROAT: Yes - mild COUGH: No CHEST DISCOMFORT: No SHORTNESS OF BREATH: No WHEEZING: No SPUTUM PRODUCTION: Green OVER THE COUNTER MEDICATION PATIENT IS TAKING: Patient is using Tylenol ALLERGIES VERIFIED WITH PATIENT: Yes DOCUMENTED ALLERGIES: Patient has no known allergies. STATUS: Patient states she is not Admits to not taking her hiv meds for at least a month due to cost. Will have social service contact her and notify Dr. Dodson's office. Looking at ID notes, she is due for labs now. Her most recent labs had been good while on meds. Does have some cough. Cough is dry. DM: She says that she is remembering to take DM medication. Not checking sugars. No hypoglycemic spells. No polydipsia or polyuria. HLD: taking cholesterol meds. No issues No chest pain No shortness of breath. No edema. MEDICATIONS: -Not taking prilosec, Genvoya (says for 1 month). -still taking loratidine, pravastatin Current Outpatient Prescriptions: erythromycin ophthalmic ointment Use 1 application in the left eye once daily. metFORMIN (GLUCOPHAGE) 500 mg tablet Take 1 tablet by mouth daily with breakfast. omeprazole (PRILOSEC) 20 mg capsule Take 1 capsule by mouth daily before breakfast. 1/2 hr before meal. podwdcvuycbv-xucwuoxehq-ihigozknuxuug-tenofovir alafenamide (GENVOYA) [id number] mg per tablet Take 1 tablet by mouth daily with food. loratadine 10 mg cap Take by mouth. PRAVASTATIN SODIUM (PRAVASTATIN ORAL) Take 20 mg by mouth once daily. No current facility-administered medications for this visit. ALLERGIES: ALLERGIES No Known Allergies PAST MEDICAL HISTORY Diagnosis Date - Diabetes (HCC) - HIV (human immunodeficiency virus infection) (HCC) - Hyperlipidemia PAST SURGICAL HISTORY Procedure Laterality Date - DELIVERY ONLY , low transverse x 2 FAMILY HISTORY Problem Relation Age of Onset - Diabetes Mother - Stroke Father Social History Marital status: Single Spouse name: Years of education: Number of children: 2 Social History Main Topics Smoking status: Never Smoker Smokeless tobacco: Never Used Alcohol use: No Drug use: No Sexual activity: No Reviewed current medications, allergies, past medical history, surgical history, family history and social history today. REVIEW OF SYSTEMS All other reviewed and negative other than HPI. HEALTH MAINTENANCE: Reviewed health maintenance issues today and recommended the following in detail. MAMMOGRAM -reminded -says she talked with Neurology at the hospital about Prevnar told her not to take. ? Not sure why. VITALS: BP 120/68 Pulse 70 Temp 36.6 ?C (97.9 ?F) (Tympanic) SpO2 96% Last 4 Encounter Wt Readings: Date: Wt: 01/22/2018 91.2 kg (201 lb) 10/05/2017 93 kg (205 lb) 03/02/2017 90.9 kg (200 lb 6.4 oz) 02/10/2017 89.8 kg (198 lb) PHYSICAL EXAMINATION: General appearance: Well appearing, alert, in no acute distress, well-hydrated, well nourished. Skin: Skin color, texture, turgor normal, no suspicious rashes or lesions Head: Normocephalic, no masses, lesions, tenderness or abnormalities Eyes: Anicteric sclera. Pupils are equally round and reactive to light. Extraocular movements are intact. Ears: External ears normal, canals clear Nose/Sinuses: Nares normal, septum midline, mucosa normal, no drainage or sinus tenderness Oropharynx: Lips, mucosa, and tongue normal, teeth and gums normal, oropharynx normal Neck: Supple, no adenopathy; thyroid symmetric, normal size, no bruits Lungs: Lungs clear to auscultation. No wheezing, rhonchi, rales Heart: RRR without murmur, gallop, or rubs. No ectopy Abdomen: Normal abdominal exam, Abdomen soft, non-tender. Bowel sounds normal. No masses, organomegaly Extremities: No deformities, edema, skin discoloration, clubbing or cyanosis. Good capillary refill. Musculoskeletal: No joint swelling, deformity, or tenderness ASSESSMENT/PLAN: 1. HIV (human immunodeficiency virus infection) (HCC) - ICD9: V08, ICD10: B20 (primary diagnosis) - off of meds. Check labs ID was considering this month as well. Will have our renal social worker help with med coverage. Encouraged med compliance. Will forward labs to ID once done. - CBC + DIFF - HIV RNA VIRAL LOAD - IMMUNODEFICIENCY CDC - XR CHEST 2V FRONTAL/LAT 2. Mixed hyperlipidemia - ICD9: 272.2, ICD10: E78.2 - to be determined upon return of lab results - Continue current medication. - Encouraged following a low fat, low cholesterol diet. - COMP METABOLIC PANEL - LIPID PANEL BASIC 3. Controlled type 2 diabetes mellitus without complication, without long-term current use of insulin ([facility]) - ICD9: 250.00, ICD10: E11.9 Controlled. - Continue current medications - HGB A1C 4. Noncompliance with medication treatment due to underuse of medication - ICD9: V15.81, ICD10: Z91.14 - as above. 5. Bacterial sinusitis - ICD9: 473.9, 041.9, ICD10: J32.9, B96.89 - Supportive care with plenty of fluids, rest, and analgesia prn. - Follow up in one week if symptoms persist or worsen. - could be viral but has been ill for a week and is immunocompromised. Will cover with an inexpensive med due to cost concerns. - Red flags for re-assessment reviewed with patient in detail. - AMOXICILLIN 875 MG TABLET 6. Cough - ICD9: 786.2, ICD10: R05 - check chest xray, especially since off meds. Nuno Irene MD CNOV Observed: 02/12/2018 Status: COMPLETED Source: [place] 9:00 AM [facility] REPOSITORY [facility] MAURA HALLMAN ([id number]) 1975 F VAIBHAV Date Time Provider Department 02/12/18 9:00 AM NUNO IRENE During your visit today, we recorded the following information about you: Temperature Pulse Blood pressure 97.9 degrees 70/minute 120/68 Melonie Bryan Davis 02/12/2018 9:07 AM Signed DURATION OF SYMPTOMS: Began 1 weeks ago ONSET OF SYMPTOMS: Gradual FEVER: Not checked, but feel like she has one BODYACHES: Mild TIREDNESS: Mild HEADACHE: No EAR SYMPTOMS: itchy STUFFY NOSE: Yes POST NASAL DRIP: Yes SNEEZING: No SORE THROAT: Yes - mild COUGH: No CHEST DISCOMFORT: No SHORTNESS OF BREATH: No WHEEZING: No SPUTUM PRODUCTION: Green OVER THE COUNTER MEDICATION PATIENT IS TAKING: Patient is using Tylenol ALLERGIES VERIFIED WITH PATIENT: Yes DOCUMENTED ALLERGIES: Patient has no known allergies. STATUS: Patient states she is not Nuno Irene MD 02/12/2018 9:59 AM Signed Patient presents with: Sore Throat Fever HPI: Patient presents today for office visit for follow up. Started about 1 week ago, 3 days it has gotten worse. Has green mucus in the throat, painful. Itching in her ears.. A little cough, but not much. Is currently taking Tylenol to help, 2 tablets of extra strength (500mg?). Not quite sure if she has been around any one that was sick. Nursing Notes: Melonie Adams Ma 02/12/2018 9:07 AM Signed DURATION OF SYMPTOMS: Began 1 weeks ago ONSET OF SYMPTOMS: Gradual FEVER: Not checked, but feel like she has one BODYACHES: Mild TIREDNESS: Mild HEADACHE: No EAR SYMPTOMS: itchy STUFFY NOSE: Yes POST NASAL DRIP: Yes SNEEZING: No SORE THROAT: Yes - mild COUGH: No CHEST DISCOMFORT: No SHORTNESS OF BREATH: No WHEEZING: No SPUTUM PRODUCTION: Green OVER THE COUNTER MEDICATION PATIENT IS TAKING: Patient is using Tylenol ALLERGIES VERIFIED WITH PATIENT: Yes DOCUMENTED ALLERGIES: Patient has no known allergies. STATUS: Patient states she is not Admits to not taking her hiv meds for at least a month due to cost. Will have social service contact her and notify Dr. Dodson's office. Looking at ID notes, she is due for labs now. Her most recent labs had been good while on meds. Does have some cough. Cough is dry. DM: She says that she is remembering to take DM medication. Not checking sugars. No hypoglycemic spells. No polydipsia or polyuria. HLD: taking cholesterol meds. No issues No chest pain No shortness of breath. No edema. MEDICATIONS: -Not taking prilosec, Genvoya (says for 1 month). -still taking loratidine, pravastatin Current Outpatient Prescriptions: erythromycin ophthalmic ointment Use 1 application in the left eye once daily. metFORMIN (GLUCOPHAGE) 500 mg tablet Take 1 tablet by mouth daily with breakfast. omeprazole (PRILOSEC) 20 mg capsule Take 1 capsule by mouth daily before breakfast. 1/2 hr before meal. hhjdqhahicra-imxcjkxdur-rhlmupqipiddn-tenofovir alafenamide (GENVOYA) [id number] mg per tablet Take 1 tablet by mouth daily with food. loratadine 10 mg cap Take by mouth. PRAVASTATIN SODIUM (PRAVASTATIN ORAL) Take 20 mg by mouth once daily. No current facility-administered medications for this visit. ALLERGIES: ALLERGIES No Known Allergies PAST MEDICAL HISTORY Diagnosis Date - Diabetes (HCC) - HIV (human immunodeficiency virus infection) (HCC) - Hyperlipidemia PAST SURGICAL HISTORY Procedure Laterality Date - DELIVERY ONLY , low transverse x 2 FAMILY HISTORY Problem Relation Age of Onset - Diabetes Mother - Stroke Father Social History Marital status: Single Spouse name: Years of education: Number of children: 2 Social History Main Topics Smoking status: Never Smoker Smokeless tobacco: Never Used Alcohol use: No Drug use: No Sexual activity: No Reviewed current medications, allergies, past medical history, surgical history, family history and social history today. REVIEW OF SYSTEMS All other reviewed and negative other than HPI. HEALTH MAINTENANCE: Reviewed health maintenance issues today and recommended the following in detail. MAMMOGRAM -reminded -says she talked with Neurology at the hospital about Prevnar told her not to take. ? Not sure why. VITALS: BP 120/68 Pulse 70 Temp 36.6 ?C (97.9 ?F) (Tympanic) SpO2 96% Last 4 Encounter Wt Readings: Date: Wt: 01/22/2018 91.2 kg (201 lb) 10/05/2017 93 kg (205 lb) 03/02/2017 90.9 kg (200 lb 6.4 oz) 02/10/2017 89.8 kg (198 lb) PHYSICAL EXAMINATION: General appearance: Well appearing, alert, in no acute distress, well-hydrated, well nourished. Skin: Skin color, texture, turgor normal, no suspicious rashes or lesions Head: Normocephalic, no masses, lesions, tenderness or abnormalities Eyes: Anicteric sclera. Pupils are equally round and reactive to light. Extraocular movements are intact. Ears: External ears normal, canals clear Nose/Sinuses: Nares normal, septum midline, mucosa normal, no drainage or sinus tenderness Oropharynx: Lips, mucosa, and tongue normal, teeth and gums normal, oropharynx normal Neck: Supple, no adenopathy; thyroid symmetric, normal size, no bruits Lungs: Lungs clear to auscultation. No wheezing, rhonchi, rales Heart: RRR without murmur, gallop, or rubs. No ectopy Abdomen: Normal abdominal exam, Abdomen soft, non-tender. Bowel sounds normal. No masses, organomegaly Extremities: No deformities, edema, skin discoloration, clubbing or cyanosis. Good capillary refill. Musculoskeletal: No joint swelling, deformity, or tenderness ASSESSMENT/PLAN: 1. HIV (human immunodeficiency virus infection) ([facility]) - ICD9: V08, ICD10: B20 (primary diagnosis) - off of meds. Check labs ID was considering this month as well. Will have our renal social worker help with med coverage. Encouraged med compliance. Will forward labs to ID once done. - CBC + DIFF - HIV RNA VIRAL LOAD - IMMUNODEFICIENCY CDC - XR CHEST 2V FRONTAL/LAT 2. Mixed hyperlipidemia - ICD9: 272.2, ICD10: E78.2 - to be determined upon return of lab results - Continue current medication. - Encouraged following a low fat, low cholesterol diet. - COMP METABOLIC PANEL - LIPID PANEL BASIC 3. Controlled type 2 diabetes mellitus without complication, without long-term current use of insulin ([facility]) - ICD9: 250.00, ICD10: E11.9 Controlled. - Continue current medications - HGB A1C 4. Noncompliance with medication treatment due to underuse of medication - ICD9: V15.81, ICD10: Z91.14 - as above. 5. Bacterial sinusitis - ICD9: 473.9, 041.9, ICD10: J32.9, B96.89 - Supportive care with plenty of fluids, rest, and analgesia prn. - Follow up in one week if symptoms persist or worsen. - could be viral but has been ill for a week and is immunocompromised. Will cover with an inexpensive med due to cost concerns. - Red flags for re-assessment reviewed with patient in detail. - AMOXICILLIN 875 MG TABLET 6. Cough - ICD9: 786.2, ICD10: R05 - check chest xray, especially since off meds. MD Nuno Coats MD 02/12/2018 9:51 AM Signed Please report to the lab today and have the labs that were ordered today during your visit. You will be contacted either by a letter, a call from a staff member or by my chart once we have had the chance to review your results. Please call us in one week after having them drawn if you have not heard from us. Get chest xray today as well. Referring Provider: SELF [200] Allergies As of Date: 02/12/2018 (No Known Allergies) Date Reviewed: 01/22/2018 Reviewed by: Melonie Adams Ma - Fully Assessed Reason for Visit: Sore Throat [200] Fever [47] Primary Visit Diagnosis:HIV (human immunodeficiency virus infection) ([facility]) [B20] Other Visit Diagnoses:Mixed hyperlipidemia [E78.2] Controlled type 2 diabetes mellitus without complication, without long-term current use of insulin ([facility]) [E11.9] Noncompliance with medication treatment due to underuse of medication [Z91.14] Bacterial sinusitis [J32.9, B96.89] Cough [R05] Order(s):CBC + DIFF [SQCBCDIF] Order #: [id number] FUTURE COMP METABOLIC PANEL [SQCMP] Order #: [id number] FUTURE LIPID PANEL BASIC [SQLIPB] Order #: [id number] FUTURE HGB A1C [LCAPP8T] Order #: [id number] FUTURE HIV RNA VIRAL LOAD [SQHIVRNA] Order #: [id number] FUTURE IMMUNODEFICIENCY CDC [SQIMMDEF] Order #: [id number] FUTURE XR CHEST 2V FRONTAL/LAT [[id number]] Order #: [id number] FUTURE amoxicillin (AMOXIL) 875 mg tabletTake 1 tablet by mouth twice daily for 10 days.Disp: 20 tabletRfl: 0 Prescriptions as of 02/12/2018 Sig: AMOXICILLIN 875 MG TABLET Take 1 tablet by mouth twice * ERYTHROMYCIN 5 MG/GRAM (0.5 %* Use 1 application in the left* METFORMIN 500 MG TABLET Take 1 tablet by mouth daily * OMEPRAZOLE 20 MG CAPSULE,RAMBO* Take 1 capsule by mouth daily* ELVITEG 150 MG-COB 150 MG-EMT* Take 1 tablet by mouth daily * LORATADINE 10 MG CAPSULE Take by mouth. PRAVASTATIN ORAL Take 20 mg by mouth once marshall* Problem List As Of Date 02/12/2018 Noted Resolved Prediabetes [R73.03] INVALID FOR*02/10/2017 HIV (human immunodeficiency virus infection) (H* Hyperlipidemia [E78.5] Memory loss [R41.3] INVALID FOR* Controlled type 2 diabetes mellitus without com*INVALID FOR* DM (diabetes mellitus) (HCC) [E11.9] 10/05/2017 Eyelid lesion, benign [H02.9] INVALID FOR* More... Other instructions from your clinician: Please report to the lab today and have the labs that were ordered today during your visit. You will be contacted either by a letter, a call from a staff member or by my chart once we have had the chance to review your results. Please call us in one week after having them drawn if you have not heard from us. Get chest xray today as well. Visit Notes: >> Melonie Adams Ma Mon Feb 12, 2018 9:02 AM Status: Signed DURATION OF SYMPTOMS: Began 1 weeks ago ONSET OF SYMPTOMS: Gradual FEVER: Not checked, but feel like she has one BODYACHES: Mild TIREDNESS: Mild HEADACHE: No EAR SYMPTOMS: itchy STUFFY NOSE: Yes POST NASAL DRIP: Yes SNEEZING: No SORE THROAT: Yes - mild COUGH: No CHEST DISCOMFORT: No SHORTNESS OF BREATH: No WHEEZING: No SPUTUM PRODUCTION: Green OVER THE COUNTER MEDICATION PATIENT IS TAKING: Patient is using Tylenol ALLERGIES VERIFIED WITH PATIENT: Yes DOCUMENTED ALLERGIES: Patient has no known allergies. STATUS: Patient states she is not Prescriptions ordered this encounter Disp Refills Start End AMOXICILLIN 875 MG TABLET 20 t* 0 02/12/2018 02/22/2018 Route: ORAL Sig: Take 1 tablet by mouth twice daily for 10 days. Disposition: Return in about 3 months (around 05/15/2018). Follow-up and Disposition History Recorded Encounter Status:Closed by NUNO IRENE MD on 02/12/18 CNCO Observed: 02/12/2018 Status: COMPLETED Source: [place] 12:00 AM [facility] REPOSITORY Letter Text Nuno Irene MD [facility] Maura Hallman [address] [facility] [address] Clinic #: [id number] 02/12/2018 Dear Anthony Viji, I have received the results of your recent tests. The results of your chest X-Ray tests were either normal or within the acceptable range. We can discuss this at your next visit. Please do not hesitate to contact me with any questions. Sincerely, Nuno Irene MD [facility] Department electronically signed to expedite mailing PROGRESS Observed: 01/22/2018 Status: COMPLETED Source: [place] 10:01 AM [facility] REPOSITORY O ID: [id number] Author: Nuno Irene Service: (none) Author Type: Physician Type: Progress Notes Filed: 01/22/2018 10:07 AM Note Text: Patient presents with: Diabetes: follow up HPI: Patient presents today for office visit for follow up. HIV: has seen ID. DM: does not check sugars at home. No polydipsia. No polyuria. HLD: no chest pain or shortness of breath. No myalgias. MEDICATIONS: Current Outpatient Prescriptions: metFORMIN (GLUCOPHAGE) 500 mg tablet Take 1 tablet by mouth daily with breakfast. omeprazole (PRILOSEC) 20 mg capsule Take 1 capsule by mouth daily before breakfast. 1/2 hr before meal. viuhqvygwnuf-bncotkcotv-gtbxyqlxfrcil-tenofovir alafenamide (GENVOYA) [phone] mg per tablet Take 1 tablet by mouth daily with food. loratadine 10 mg cap Take by mouth. PRAVASTATIN SODIUM (PRAVASTATIN ORAL) Take 20 mg by mouth once daily. erythromycin ophthalmic ointment Use 1 application in the left eye once daily. No current facility-administered medications for this visit. ALLERGIES: ALLERGIES No Known Allergies PAST MEDICAL HISTORY Diagnosis Date - Diabetes (HCC) - HIV (human immunodeficiency virus infection) (HCC) - Hyperlipidemia PAST SURGICAL HISTORY Procedure Laterality Date - DELIVERY ONLY , low transverse x 2 FAMILY HISTORY Problem Relation Age of Onset - Diabetes Mother - Stroke Father Social History Marital status: Single Spouse name: Years of education: Number of children: 2 Social History Main Topics Smoking status: Never Smoker Smokeless tobacco: Never Used Alcohol use: No Drug use: No Sexual activity: No Reviewed current medications, allergies, past medical history, surgical history, family history and social history today. REVIEW OF SYSTEMS All other reviewed and negative other than HPI. HEALTH MAINTENANCE: Reviewed health maintenance issues today and recommended the following in detail. DIABETIC FOOT EXAM due on 1991 DTAP,TDAP,TD(1 - Tdap) due on 07/25/1994-recommended at some point. ADULT PREVNAR-13 due on 1994 VITALS: BP 112/68 Pulse 88 Resp 16 Wt 91.2 kg (201 lb) BMI 37.98 kg/m? Last 4 Encounter Wt Readings: Date: Wt: 01/22/2018 91.2 kg (201 lb) 10/05/2017 93 kg (205 lb) 03/02/2017 90.9 kg (200 lb 6.4 oz) 02/10/2017 89.8 kg (198 lb) PHYSICAL EXAMINATION: General appearance: Well appearing, alert, in no acute distress, well-hydrated, well nourished. Skin: Skin color, texture, turgor normal, no suspicious rashes or lesions Head: Normocephalic, no masses, lesions, tenderness or abnormalities Lungs: Lungs clear to auscultation. No wheezing, rhonchi, rales Heart: RRR without murmur, gallop, or rubs. No ectopy Abdomen: Normal abdominal exam, Abdomen soft, non-tender. Bowel sounds normal. No masses, organomegaly Extremities: No deformities, edema, skin discoloration, clubbing or cyanosis. Good capillary refill. Feet:Shoes and socks removed, No deformities, ulcers, calluses, normal distal pulses and sensitive to 10 gm monofilament ASSESSMENT/PLAN: 1. Controlled type 2 diabetes mellitus without complication, without long-term current use of insulin (HCC) - ICD9: 250.00, ICD10: E11.9 (primary diagnosis) Controlled. - Continue current medications - HGB A1C 2. Mixed hyperlipidemia - ICD9: 272.2, ICD10: E78.2 - to be determined upon return of lab results - Continue current medication. 3. HIV (human immunodeficiency virus infection) ([facility]) - ICD9: V08, ICD10: B20 - per ID Nuno Irene MD RTO in three months and prn. DEGROOT Observed: 01/22/2018 Status: COMPLETED Source: [place] 9:40 AM [facility] REPOSITORY Office Visit (FAMPWS) MAURA HALLMAN ([id number]) 1975 [facility] Date Time Provider Department 01/22/18 9:40 AM [facility] During your visit today, we recorded the following information about you: Pulse Respiration Blood pressure Weight 88/minute 16/minute 112/68 91.2 kg Nuno Irene MD 01/22/2018 10:07 AM Signed Patient presents with: Diabetes: follow up HPI: Patient presents today for office visit for follow up. HIV: has seen ID. DM: does not check sugars at home. No polydipsia. No polyuria. HLD: no chest pain or shortness of breath. No myalgias. MEDICATIONS: Current Outpatient Prescriptions: metFORMIN (GLUCOPHAGE) 500 mg tablet Take 1 tablet by mouth daily with breakfast. omeprazole (PRILOSEC) 20 mg capsule Take 1 capsule by mouth daily before breakfast. 1/2 hr before meal. pitayyqcewlu-hhddvvlnnf-edvetideaplql-tenofovir alafenamide (GENVOYA) [phone] mg per tablet Take 1 tablet by mouth daily with food. loratadine 10 mg cap Take by mouth. PRAVASTATIN SODIUM (PRAVASTATIN ORAL) Take 20 mg by mouth once daily. erythromycin ophthalmic ointment Use 1 application in the left eye once daily. No current facility-administered medications for this visit. ALLERGIES: ALLERGIES No Known Allergies PAST MEDICAL HISTORY Diagnosis Date - Diabetes (HCC) - HIV (human immunodeficiency virus infection) (HCC) - Hyperlipidemia PAST SURGICAL HISTORY Procedure Laterality Date - DELIVERY ONLY , low transverse x 2 FAMILY HISTORY Problem Relation Age of Onset - Diabetes Mother - Stroke Father Social History Marital status: Single Spouse name: Years of education: Number of children: 2 Social History Main Topics Smoking status: Never Smoker Smokeless tobacco: Never Used Alcohol use: No Drug use: No Sexual activity: No Reviewed current medications, allergies, past medical history, surgical history, family history and social history today. REVIEW OF SYSTEMS All other reviewed and negative other than HPI. HEALTH MAINTENANCE: Reviewed health maintenance issues today and recommended the following in detail. DIABETIC FOOT EXAM due on 1991 DTAP,TDAP,TD(1 - Tdap) due on 07/25/1994-recommended at some point. ADULT PREVNAR-13 due on 1994 VITALS: BP 112/68 Pulse 88 Resp 16 Wt 91.2 kg (201 lb) BMI 37.98 kg/m? Last 4 Encounter Wt Readings: Date: Wt: 01/22/2018 91.2 kg (201 lb) 10/05/2017 93 kg (205 lb) 03/02/2017 90.9 kg (200 lb 6.4 oz) 02/10/2017 89.8 kg (198 lb) PHYSICAL EXAMINATION: General appearance: Well appearing, alert, in no acute distress, well-hydrated, well nourished. Skin: Skin color, texture, turgor normal, no suspicious rashes or lesions Head: Normocephalic, no masses, lesions, tenderness or abnormalities Lungs: Lungs clear to auscultation. No wheezing, rhonchi, rales Heart: RRR without murmur, gallop, or rubs. No ectopy Abdomen: Normal abdominal exam, Abdomen soft, non-tender. Bowel sounds normal. No masses, organomegaly Extremities: No deformities, edema, skin discoloration, clubbing or cyanosis. Good capillary refill. Feet:Shoes and socks removed, No deformities, ulcers, calluses, normal distal pulses and sensitive to 10 gm monofilament ASSESSMENT/PLAN: 1. Controlled type 2 diabetes mellitus without complication, without long-term current use of insulin (HCC) - ICD9: 250.00, ICD10: E11.9 (primary diagnosis) Controlled. - Continue current medications - HGB A1C 2. Mixed hyperlipidemia - ICD9: 272.2, ICD10: E78.2 - to be determined upon return of lab results - Continue current medication. 3. HIV (human immunodeficiency virus infection) ([facility]) - ICD9: V08, ICD10: B20 - per ID Nuno Irene MD RTO in three months and prn. Referring Provider: SELF [200] Allergies As of Date: 01/22/2018 (No Known Allergies) Date Reviewed: 01/22/2018 Reviewed by: Melonie Adams Ma - Fully Assessed Reason for Visit: Diabetes [34] Cmt: follow up Primary Visit Diagnosis:Controlled type 2 diabetes mellitus without complication, without long-term current use of insulin (HCC) [E11.9] Other Visit Diagnoses:Mixed hyperlipidemia [E78.2] HIV (human immunodeficiency virus infection) ([facility]) [B20] Order(s):HGB A1C [[id number]] Order #: [id number] FUTURE Prescriptions as of 01/22/2018 Sig: METFORMIN 500 MG TABLET Take 1 tablet by mouth daily * OMEPRAZOLE 20 MG CAPSULE,RAMBO* Take 1 capsule by mouth daily* ELVITEG 150 MG-COB 150 MG-EMT* Take 1 tablet by mouth daily * LORATADINE 10 MG CAPSULE Take by mouth. PRAVASTATIN ORAL Take 20 mg by mouth once marshall* ERYTHROMYCIN 5 MG/GRAM (0.5 %* Use 1 application in the left* Problem List As Of Date 01/22/2018 Noted Resolved Prediabetes [R73.03] INVALID FOR*02/10/2017 HIV (human immunodeficiency virus infection) (H* Hyperlipidemia [E78.5] Memory loss [R41.3] INVALID FOR* Controlled type 2 diabetes mellitus without com*INVALID FOR* DM (diabetes mellitus) ([facility]) [E11.9] 10/05/2017 Eyelid lesion, benign [H02.9] INVALID FOR* More... Disposition: Return in about 3 months (around 04/24/2018). Follow-up and Disposition History Recorded Encounter Status:Closed by NUNO IRENE MD on 01/22/18 PROGRESS Observed: 10/18/2017 Status: COMPLETED Source: [place] 11:32 AM [facility] [place] REPOSITORY HNO ID: [id number] Author: Slim Crow Service: (none) Author Type: Physician Type: Progress Notes Filed: 10/18/2017 11:34 AM Note Text: ASSESSMENT/PLAN: 1. Eyelid lesion, benign - ICD9: 374.9, ICD10: H02.9 (primary diagnosis) - OCT MACULA CIRRUS OU (BOTH EYES) Return to the office in 3 weeks for growth removal upper lid left eye 2. HIV (human immunodeficiency virus infection) (HCC) - ICD9: V08, ICD10: B20 Continue to monitor with primary care physician 3. Type 2 diabetes mellitus without retinopathy (HCC) - ICD9: 250.00, ICD10: E11.9 Please keep your blood sugar under good control to minimize risk of ocular complications from diabetes. Observe Slim Crow MD I have confirmed and edited as necessary the relevant ophthalmic history, review of systems, surgical history, and ophthalmological examination findings as obtained by the ophthalmic technical staff. I have seen and examined Maura Hallman. I have discussed the examination findings, diagnosis, and treatment options with Maura Hallman and/or her family. I have also reviewed and agree with the assessment and plan as stated above and agree with all its relevant components. I gave the patient the opportunity to ask questions about the findings, diagnosis, and treatment options. HEMOGLOBIN A1C Collected: 10/05/2017 Status: F Source: [place] 11:12 AM [facility] REPOSITORY TYPE CODE TESTS RESULT OUT OF REFERENCE UNITS RANGE LAB HGBA1C 4.3-5.6 % High Hemoglobin A1c 7.6 LAB HBA0 mg/dL Est. Average Glucose 171 Result Comment: eAG: (Estimated average glucose) is a calculated value from HgbA1c and is customer service representative teller of the average blood glucose level in the last 2-3 month period. Performed By: #### HBA1C, CMP, LIPNF #### [facility] [address] [address] COMP METABOLIC PANEL Collected: 10/05/2017 Status: F Source: [place] 11:12 AM [facility] REPOSITORY TYPE CODE TESTS RESULT OUT OF REFERENCE UNITS RANGE LAB TP 6.3-8.0 g/dL Protein, Total 7.2 LAB ALB 3.9-4.9 g/dL Albumin 4.0 LAB CA 8.5-10.2 mg/dL Calcium, Total 9.2 LAB TBIL 0.2-1.3 mg/dL Low Bilirubin, Total <0.2 LAB ALKP 32-117 U/L Alkaline Phosphatase 111 LAB AST 13-35 U/L AST 25 LAB GLU 74-99 mg/dL Glucose High 147 Result Comment: The [place] Diabetes Association (ADA) provides guidance for cutoff values for fasting glucose and random glucose. The ADA defines fasting as no caloric intake for at least 8 hours. Fas ting plasma glucose results between 100 to 125 mg/dL indicate increased risk for diabetes (prediabetes). Fasting plasma glucose results greater than or equal to 126 mg/dL meet the criteria for diagnosis of diabetes. In the absence of unequivocal hyperglycemia, results should be confirmed by repeat testing. In a patient with classic symptoms of hyperglycemia or hyperglycemic crisis, random plasma glucose results greater than or equal to 200 mg/dL meet the criteria for diagnosis of diabetes. Reference: Standards of Medical Care in Diabetes 2016, [place] Diabetes Association. Diabetes Care. 2016.39(Suppl 1). LAB BUN 7-21 mg/dL BUN 10 LAB CRET 0.58-0.96 mg/dL Creatinine Low 0.48 LAB NA 136-144 mmol/L Sodium Low 135 LAB K 3.7-5.1 mmol/L Potassium 4.5 LAB CL 97-105 mmol/L Chloride 104 LAB CO2 22-30 mmol/L CO2 Low 20 LAB AGAP 9-18 mmol/L Anion Gap 11 LAB ALT 7-38 U/L ALT 35 LAB GFRAA eGFR- Amer. >60 LAB GFRNAA . eGFR-All Other Races >60 Result Comment: eGFR (Estimated GFR) Units of measure: mL/min/1.73 meters squared eGFR is derived from the reexpressed MDRD Study equation using the following parameters: serum creatinine, age, gender and race. The creatinine assay has been calibrated to be traceable to IDMS. An eGFR <60 mL/min/1.73m2 for >3 months is consistent with chronic kidney disease. Refer to KDOQI guidelines for clinical interpretation. In patients with unstable renal function, e.g. those with acute kidney injury, the eGFR may not accurately reflect actual GFR. Performed By: #### HBA1C, CMP, LIPNF #### [facility] [address] [place], [place] [address] LIPID PANEL, NONFAST Collected: 10/05/2017 Status: F Source: [place] 11:12 AM [facility] REPOSITORY TYPE CODE TESTS RESULT OUT OF REFERENCE UNITS RANGE LAB CHOLNF <200 mg/dL Total Cholesterol NF 165 Result Comment: <200 mg/dL, Desirable 200-239 mg/dL, Borderline high >239 mg/dL, High LAB TRIGNF <150 mg/dL Triglycerides, NF 105 Result Comment: <150 mg/dL, Normal 150-199 mg/dL, Borderline high 200-499 mg/dL, High >499 mg/dL, Very high LAB HDLNF >39 mg/dL HDL Cholesterol, NF 46 Result Comment: 40-59 mg/dL, Acceptable >59 mg/dL, High: Negative risk factor for coronary heart disease <40 mg/dL, Low: Positive risk factor for coronary heart disease LAB LDLNF <100 mg/dL LDL Cholesterol, NF 98 Result Comment: <100 mg/dL, Optimal 100-129 mg/dL, Near optimal/above optimal 130-159 mg/dL, Borderline high 160-189 mg/dL, High >189 mg/dL, Very high Secondary prevention optimal LDL Cholesterol levels are recommended to be < 70 mg/dL LAB NOHDLN <130 mg/dL Non HDL Chol, 119 NF Result Comment: <130 mg/dL, Optimal 130-159 mg/dL, Near optimal/above optimal 160-189 mg/dL, Borderline high 190-219 mg/dL, High >219 mg/dL, Very high Secondary prevention optimal non HDL Cholesterol levels are recommended to be < 100 mg/dL LAB VLDLNF <30 mg/dL VLDL Cholesterol, NF 21 LAB TCHDLN <5.10 mg/dL T Chol/HDL Ratio NF 3.59 LAB LDLHDN <2.54 mg/dL LDL/HDL Ratio, NF 2.13 Result Comment: Reference: 1. National Cholesterol Education Program ATP III Guideline At-A-Glance Quick Desk Reference: National Heart, Lung, and Blood [place]. National Institutes of Health. 2001: NIH Publication No. 01-3305. 2. An International Atherosclerosis Society position paper: global recommendations for the management of dyslipidemia: executive summary, Atherosclerosis. 2014: 232(2):410-413. Performed By: #### HBA1C, CMP, LIPNF #### [facility] [address] [place], [place] [address] ALBUMIN/CREAT RATIO Collected: 10/05/2017 Status: F Source: [place] 11:12 AM [facility] REPOSITORY TYPE CODE TESTS RESULT OUT OF REFERENCE UNITS RANGE LAB UCRR 20-300 mg/dL 67.5 Creatinine,Ur ine,Ran LAB UALBR 0.0-23.0 mg/L <12.0 Albumin Urine Random LAB UALBCR 0-30 mg/g Not Albumin/Creat calculated Ratio Performed By: #### UACR #### [facility] [address] [place], [place] [address] PROGRESS Observed: 10/05/2017 Status: COMPLETED Source: [place] 10:26 AM [facility] REPOSITORY HNO ID: [id number] Author: Nuno Irene Service: (none) Author Type: Physician Type: Progress Notes Filed: 10/05/2017 10:38 AM Note Text: Patient presents with: ED Follow-up: left arm pain given naprosyn and using ice Recheck HPI: Patient presents today for office visit for follow up. HOSPITAL/ER FOLLOW UP: Reason for visit: ER follow up Which facility: [facility] Date of visit: 10/04/17 Diagnosis: left upper ext pain/strain Testing done: none Treatment given: RICE and nsaids Current symptoms: saw chiropractor and seemed to help. Will continue seeing him. No definite numbness or weakness. No swelling. HIV:still seeing ID. Labs have been stable. HLD:no new myalgias. No shortness of breath or chest pain. DM:started on metformin and stopped on her own. MEDICATIONS: Current Outpatient Prescriptions: qccwvlpgpqju-ojpbkkrgzg-fntzcnyhrfpvj-tenofovir alafenamide (GENVOYA) [phone] mg per tablet Take 1 tablet by mouth daily with food. loratadine 10 mg cap Take by mouth. PRAVASTATIN SODIUM (PRAVASTATIN ORAL) Take 20 mg by mouth once daily. omeprazole (PRILOSEC) 20 mg capsule Take 1 capsule by mouth daily before breakfast. 1/2 hr before meal. No current facility-administered medications for this visit. ALLERGIES: ALLERGIES No Known Allergies PAST MEDICAL HISTORY Diagnosis Date - HIV (human immunodeficiency virus infection) (HCC) - Hyperlipidemia PAST SURGICAL HISTORY Procedure Laterality Date - DELIVERY ONLY , low transverse x 2 FAMILY HISTORY Problem Relation Age of Onset - Diabetes Mother - Stroke Father Social History Marital status: Single Spouse name: Years of education: Number of children: 2 Social History Main Topics Smoking status: Never Smoker Smokeless status: Never Used Alcohol use: No Drug use: No Sexual activity: No Reviewed current medications, allergies, past medical history, surgical history, family history and social history today. REVIEW OF SYSTEMS All other reviewed and negative other than HPI. HEALTH MAINTENANCE: Reviewed health maintenance issues today and recommended the following in detail. VITALS: BP 110/68 Pulse 64 Resp 14 Wt 93 kg (205 lb) BMI 38.73 kg/m2 Last 4 Encounter Wt Readings: Date: Wt: 10/05/2017 93 kg (205 lb) 03/02/2017 90.9 kg (200 lb 6.4 oz) 02/10/2017 89.8 kg (198 lb) 02/08/2017 90.3 kg (199 lb) PHYSICAL EXAMINATION: General appearance: Well appearing, alert, in no acute distress, well-hydrated, well nourished. Skin: has lesion on left upper eye lid. Wants removed. Can be uncomfortable at times. Neck: Supple, no adenopathy Lungs: Lungs clear to auscultation. No wheezing, rhonchi, rales Heart: RRR without murmur, gallop, or rubs. No ectopy Abdomen: Normal abdominal exam, Abdomen soft, non-tender. Bowel sounds normal. No masses, organomegaly Extremities: No deformities, edema, skin discoloration, clubbing or cyanosis. Good capillary refill. Musculoskeletal: No joint swelling, deformity, or tenderness Peripheral pulses: Normal Neuro: normal dtrs, normal motor and sensory exam. ASSESSMENT/PLAN: 1. HIV (human immunodeficiency virus infection) (HCC) - ICD9: V08, ICD10: B20 (primary diagnosis) - continue to see ID. 2. Type 2 diabetes mellitus without complication, unspecified whether rubber washer insulin use (HCC) - ICD9: 250.00, ICD10: E11.9 - check labs. See if needs to resume metformin. - HGB A1C - ALBUMIN/CREAT RATIO RND UR 3. Mixed hyperlipidemia - ICD9: 272.2, ICD10: E78.2 - to be determined upon return of lab results - Continue current medication. - Encouraged following a low fat, low cholesterol diet. - COMP METABOLIC PANEL - LIPID PANEL BASIC - LIPID PANEL, NONFASTING 4. Eyelid lesion - ICD9: 374.9, ICD10: H02.9 - see optho - CONSULT TO OPHTHALMOLOGY 5. Arm pain, diffuse, left - ICD9: 729.5, ICD10: M79.602 - continue to see chiropractor. Continue naproxen. Call if symptoms worsen at all or if not better in one to two weeks Nuno Irene MD CNOV Observed: 10/05/2017 Status: COMPLETED Source: [place] 9:20 AM [facility] REPOSITORY Office Visit (FAMPWS) MAURA HALLMAN ([id number]) 1975 [facility] Date Time Provider Department 10/05/17 9:20 AM NUNO IRENE FAMCarrollWS During your visit today, we recorded the following information about you: Pulse Respiration Blood pressure Weight 64/minute 14/minute 110/68 93 kg Nuno Irene MD 10/05/2017 10:38 AM Signed Patient presents with: ED Follow-up: left arm pain given naprosyn and using ice Recheck HPI: Patient presents today for office visit for follow up. HOSPITAL/ER FOLLOW UP: Reason for visit: ER follow up Which facility: [facility] Date of visit: 10/04/17 Diagnosis: left upper ext pain/strain Testing done: none Treatment given: RICE and nsaids Current symptoms: saw chiropractor and seemed to help. Will continue seeing him. No definite numbness or weakness. No swelling. HIV:still seeing ID. Labs have been stable. HLD:no new myalgias. No shortness of breath or chest pain. DM:started on metformin and stopped on her own. MEDICATIONS: Current Outpatient Prescriptions: pfkvbygfrpsl-cqtkninitw-thhhkaphglelm-tenofovir alafenamide (GENVOYA) [phone] mg per tablet Take 1 tablet by mouth daily with food. loratadine 10 mg cap Take by mouth. PRAVASTATIN SODIUM (PRAVASTATIN ORAL) Take 20 mg by mouth once daily. omeprazole (PRILOSEC) 20 mg capsule Take 1 capsule by mouth daily before breakfast. 1/2 hr before meal. No current facility-administered medications for this visit. ALLERGIES: ALLERGIES No Known Allergies PAST MEDICAL HISTORY Diagnosis Date - HIV (human immunodeficiency virus infection) (HCC) - Hyperlipidemia PAST SURGICAL HISTORY Procedure Laterality Date - DELIVERY ONLY , low transverse x 2 FAMILY HISTORY Problem Relation Age of Onset - Diabetes Mother - Stroke Father Social History Marital status: Single Spouse name: Years of education: Number of children: 2 Social History Main Topics Smoking status: Never Smoker Smokeless status: Never Used Alcohol use: No Drug use: No Sexual activity: No Reviewed current medications, allergies, past medical history, surgical history, family history and social history today. REVIEW OF SYSTEMS All other reviewed and negative other than HPI. HEALTH MAINTENANCE: Reviewed health maintenance issues today and recommended the following in detail. VITALS: BP 110/68 Pulse 64 Resp 14 Wt 93 kg (205 lb) BMI 38.73 kg/m2 Last 4 Encounter Wt Readings: Date: Wt: 10/05/2017 93 kg (205 lb) 03/02/2017 90.9 kg (200 lb 6.4 oz) 02/10/2017 89.8 kg (198 lb) 02/08/2017 90.3 kg (199 lb) PHYSICAL EXAMINATION: General appearance: Well appearing, alert, in no acute distress, well-hydrated, well nourished. Skin: has lesion on left upper eye lid. Wants removed. Can be uncomfortable at times. Neck: Supple, no adenopathy Lungs: Lungs clear to auscultation. No wheezing, rhonchi, rales Heart: RRR without murmur, gallop, or rubs. No ectopy Abdomen: Normal abdominal exam, Abdomen soft, non-tender. Bowel sounds normal. No masses, organomegaly Extremities: No deformities, edema, skin discoloration, clubbing or cyanosis. Good capillary refill. Musculoskeletal: No joint swelling, deformity, or tenderness Peripheral pulses: Normal Neuro: normal dtrs, normal motor and sensory exam. ASSESSMENT/PLAN: 1. HIV (human immunodeficiency virus infection) (HCC) - ICD9: V08, ICD10: B20 (primary diagnosis) - continue to see ID. 2. Type 2 diabetes mellitus without complication, unspecified whether usp insulin use (HCC) - ICD9: 250.00, ICD10: E11.9 - check labs. See if needs to resume metformin. - HGB A1C - ALBUMIN/CREAT RATIO RND UR 3. Mixed hyperlipidemia - ICD9: 272.2, ICD10: E78.2 - to be determined upon return of lab results - Continue current medication. - Encouraged following a low fat, low cholesterol diet. - COMP METABOLIC PANEL - LIPID PANEL BASIC - LIPID PANEL, NONFASTING 4. Eyelid lesion - ICD9: 374.9, ICD10: H02.9 - see optho - CONSULT TO OPHTHALMOLOGY 5. Arm pain, diffuse, left - ICD9: 729.5, ICD10: M79.602 - continue to see chiropractor. Continue naproxen. Call if symptoms worsen at all or if not better in one to two weeks Nuno Irene MD Referring Provider: SELF [200] Allergies As of Date: 10/05/2017 (No Known Allergies) Date Reviewed: 10/05/2017 Reviewed by: Agata Jackson LPN - Fully Assessed Reason for Visit: ED Follow-up [821] Cmt: left arm pain given naprosyn and using ice Recheck [92] Reason For Visit History Recorded Primary Visit Diagnosis:HIV (human immunodeficiency virus infection) (HCC) [B20] Other Visit Diagnoses:Type 2 diabetes mellitus without complication, unspecified whether rubber washer insulin use (HCC) [E11.9] Mixed hyperlipidemia [E78.2] Eyelid lesion [H02.9] Arm pain, diffuse, left [M79.602] Order(s):COMP METABOLIC PANEL [SQCMP] Order #: [id number] FUTURE HGB A1C [ZRJJO9G] Order #: [id number] FUTURE ALBUMIN/CREAT RATIO RND UR [SQUACR] Order #: [id number] FUTURE LIPID PANEL, NONFASTING [SQLIPNF] Order #: [id number] FUTURE CONSULT TO OPHTHALMOLOGY [9069] Order #: [id number]: 1 Prescriptions as of 10/05/2017 Sig: ELVITEG 150 MG-COB 150 MG-EMT* Take 1 tablet by mouth daily * LORATADINE 10 MG CAPSULE Take by mouth. PRAVASTATIN ORAL Take 20 mg by mouth once marshall* OMEPRAZOLE 20 MG CAPSULE,RAMBO* Take 1 capsule by mouth daily* Problem List As Of Date 10/05/2017 Noted Resolved Prediabetes [R73.03] INVALID FOR*02/10/2017 HIV (human immunodeficiency virus infection) (H* Hyperlipidemia [E78.5] Memory loss [R41.3] INVALID FOR* Controlled type 2 diabetes mellitus without com*INVALID FOR* DM (diabetes mellitus) (HCC) [E11.9] 10/05/2017 Medications Discontinued During This Encounter metFORMIN (GLUCOPHAGE) 500 mg tablet 30 t* 5 02/10/2017 10/05/2017 Route: ORAL Sig: Take 1 tablet by mouth once daily. . Patient not taking: Reported on 10/05/2017 Disc: Reason for discontinue is not on file. Disposition: Return in about 3 months (around 01/05/2018). Follow-up and Disposition History Recorded Encounter Status:Closed by NUNO IRENE MD on 10/05/17 EMERGENCY DEPARTMENT Observed: 10/04/2017 Status: F Source: [place] SUMMARY 9:32 AM [facility] REPOSITORY [facility] Medical Records Department [address] [place] [address] Emergency Department Summary 10/04/17 0925 MR#: [id number] Acct: [id number] Name: MAURA HALLMAN Rep #: [id number] : 1975 42 From: Dawit Galvan MD PCP: Nuno Irene MD Status: REG ER - ER Visit Summary Date of Service: 10/04/17 Chief Complaint: Upper extremity pain History of Present Illness: The patient is a 42 F who is right hand dominant presents with pain left upper extremity. She states the pain, which is chronic, got worse after carrying a 20 pound bag with her left upper extremity. There is no history of direct trauma. She denies paresthesia, anesthesia or motor weakness. She is reluctant to move the left upper extremity. She denies any chest discomfort or shortness of breath. She has no other complaints. She understands Pakistani. Her responses were in Malawian. Son interpreted what she said for me. Based on review of old records there is a history of type 2 diabetes. She has no allergies to NSAIDs. She has no history of renal dysfunction. Last creatinine was 0.62. Physical Examination: Vital signs remarkable for blood pressure 136/100. She did not resisted any attempted passive range of motion by me. Axillary, median radial ulnar function intact. She is able to AB duct to 90 . She is able to internally and externally rotate at the shoulder. She is able to flex and extend at the elbow. She is able to supinate and pronate. There is no point tenderness appreciated. DTR 1+ at the biceps, brachialis and triceps. There is no pain in a radicular pattern. The pain shoots from her wrist to her shoulder. Heart is regular without murmur, gallop or rub. S1 and S2 are normal. Lungs are clear to auscultation with good movement of air bilaterally. Test Results: None were obtained, nor are any indicated Emergency Department Course and Treatment: Patient has musculoskeletal discomfort secondary to muscle strain. She received a dose of Naprosyn in department and a prescription for Naprosyn. She was informed if her pain is no better she should follow- up with Dr. Cruz. Treatment Plan: Outpatient follow-up as needed, appropriate home-going instructions and ice, rest and anti-inflammatory medication. Disposition: Discharged home with son Impression: Left upper extremity pain secondary to muscle strain This note was generated with [employer] dictation software. It may contain incorrect words, spelling, and punctuation that were not noted in review of the chart prior to signing ED Disposition - Plan for ED Patient: Disposition: Home or Assisted Living Chief Complaint: Upper Extremity Injury Instructions: ED Strain Muscle Ext Prescriptions: Naproxen [Naprosyn] 500 mg PO BID #10 tab Referrals: Nuno Irene MD [Primary Care Provider] - 3-5 Days if not improving What to do if you have Problems For any increased pain, shortness of breath, bleeding, nausea or vomiting, chest pain, or any unexpected problems, contact your Primary Care Provider. Call [facility] ([phone]) or report to the closest Emergency Room. Call 911 if necessary. 10/04/17 0932 <Electronically signed by Dawit Galvan MD> Date Dawit Galvan MD Cosigner Signature (If Indicated): Date CC: Nuno Irene MD [facility] Observed: 09/19/2017 Status: COMPLETED Source: [place] [address]:00 AM [facility] [place] REPOSITORY Patient Outreach (INTMWH) MAURA HALLMAN ([id number]) 1975 [facility] Date Time Provider Department 09/19/17 [facility] During your visit today, we recorded the following information about you: Allergies As of Date: 09/19/2017 (No Known Allergies) Date Reviewed: 06/12/2017 Reviewed by: Melonie Adams Ma - Fully Assessed Visit Diagnosis:Medication management [Z79.899] Prescriptions as of 09/19/2017 Sig: X METFORMIN 500 MG TABLET Take 1 tablet by mouth once d* Patient not taking: Reported on 10/05/2017 OMEPRAZOLE 20 MG CAPSULE,RAMBO* Take 1 capsule by mouth daily* ELVITEG 150 MG-COB 150 MG-EMT* Take 1 tablet by mouth daily * LORATADINE 10 MG CAPSULE Take by mouth. PRAVASTATIN ORAL Take 20 mg by mouth once marshall* Problem List As Of Date 09/19/2017 Noted Resolved Prediabetes [R73.03] INVALID FOR*02/10/2017 HIV (human immunodeficiency virus infection) (H* Hyperlipidemia [E78.5] Memory loss [R41.3] INVALID FOR* Controlled type 2 diabetes mellitus without com*INVALID FOR* Encounter Status:Closed by Lumi MobileBenoit on 04/20/18 ALLERGIES ALLERGIES DATE TYPE / CODE NAME / CODE REACTION SEVERITY SOURCE 07/27/2018 Drug No Known Unknown [facility] Allergy/416 Allergies/B01215 Hospital 304677(SNOM 0388(RXNORM) Repository ED CT) Drug NO KNOWN [facility] Class/36223 ALLERGIES [facility] 1003(SNOMED Repository CT) ENCOUNTERS ENCOUNTERS ADMIT/DISCHARGE ACCOUNT NUMBER ADMITTING ENCOUNTER LOCATION SOURCE CLASS 07/27/2018/07/27/19 [id number] Emergency [place] [facility] ding:ED Repository 06/13/2018 [id number] Ambulatory [facility] Repository 06/04/2018/06/04/20 [id number] Ambulatory [place] [facility] [place] Repository 05/30/2018/06/01/20 [id number] Ambulatory [place] [facility] [place] Repository 05/28/2018 [id number] Ambulatory [facility] [place] Repository 05/22/2018 [id number] Ambulatory [facility] Repository 05/07/2018 [id number] Ambulatory [facility] Repository 02/12/2018/02/13/20 [id number] Ambulatory [place] [facility] [place] Repository 02/12/2018/02/13/20 [id number] Ambulatory [place] [facility] [place] Repository 02/12/2018/02/14/20 [id number] Ambulatory [place] [facility] [place] Repository 01/22/2018/01/25/20 [id number] Ambulatory [address] [place] Repository 01/08/2018 [id number] Ambulatory [facility] Repository 01/04/2018 [id number] Ambulatory [facility] Repository 10/18/2017/10/21/19 [id number] Ambulatory [address] [place] Repository 10/05/2017/10/06/19 [id number] Ambulatory [address] [place] Repository 10/05/2017/10/07/19 [id number] Ambulatory [address] [place] Repository 10/04/2017/10/05/19 [id number] Emergency [place] [address] ding:ED Repository 08/10/2017 [id number] Ambulatory [facility] Repository PAYERS PAYERS ENCOUNTER GUARANTOR PAYER SUBSCRIBER SOURCE 07/27/2018 MAURA Go Primary NOT GIVENUNK [place] [id number] Insurance:SELF PAY [place], [place] Number: Effective Repository [id number]: (330) Date:2018-07-27 [phone] () 06/13/2018 Maura Go Primary Maura Go [facility] QuinterosDOB: Insurance:Self QuinterosDOB: System [id number] PayPolicy Number: [id number] Effective Date: [place], [place] [address]Vmy: (HP) 05/22/2018 Muara Go Primary Maura [facility] QuinterosDOB: Insurance:Self QuinterosDOB: System PayPolicy Number: [id number] [facility] Effective Date: [place], [place] [address]Iba: () 05/07/2018 Maura Go Primary Maura [facility] QuinterosDOB: Insurance:Self QuinterosDOB: System PayPolicy Number: [id number] [facility] Effective Date: [place], [place] [address]Sog: () 01/08/2018 Maura Go Primary [facility]a [facility] QuinterosDOB: Insurance:Self QuinterosDOB: System PayPolicy Number: [id number] [facility] Effective Date: [place], [place] [address]Ahw: () 01/04/2018 Maura Go Primary [facility]a [facility] QuinterosDOB: Insurance:BuckeyePoli QuinterosDOB: System cy Number: Effective [id number] [facility] Date: [place], [place] [address]Xxl: () 10/04/2017 MAURA Go Primary MAURA M[place]oster [id number] Insurance:BUCKEYE QUINTEROSDOB: [facility] [id number]: Repository [id number]: ([phone] [id number] [phone] () Date:2700-01-00VJ [address] [place] [address] [place] [address]FE: 10/04/2017 Secondary NOT GIVENUNK Rosi Insurance:SELF PAY [facility] Number: Effective Repository Date:2017-10-04 08/10/2017 Maura Go Primary [facility]a [facility] QuinterosDOB: Insurance:BuckeyePoli QuinterosDOB: System cy Number: Effective [id number] Medical [facility] Date: [place], [place] [address]Wht: ()
== END 2018-07-27 14:57 | disposition home or self-care (01) ==
LOC: ED 13:13
PROVIDERS: Emergency Provider Emergency Medicine; Family Provider Family Medicine; PCP Family Medicine
DX: S16.1XXA Strain of muscle, fascia and tendon at neck level, initial encounter (principal); W00.0XXA Fall on same level due to ice and snow, initial encounter; Y93.9 Activity, unspecified; Y92.9 Unspecified place or not applicable; Y99.9 Unspecified external cause status; M47.9 Spondylosis, unspecified; B20 Human immunodeficiency virus [HIV] disease; Z79.899 Other long term (current) drug therapy
CPT/HCPCS: 72040; 99283

== ENCOUNTER → 2020-01-17 14:52 | Outpatient (CLI) | payer MEDICAID, SELFPAY ==
--- NOTE | 2020-01-17 15:00 | RAD_ITS ---
STUDY: X-RAY - CERVICAL SPINE REASON FOR EXAM: Female, 44 years old. Strain TECHNIQUE: 7 view(s) of the cervical spine were obtained. COMPARISON: None FINDINGS: Normal anterior atlantoaxial articulation. Normal odontoid process. Normal cervical lordosis. Normal vertebral bodies with mild spurring at the endplates. Normal disc space heights. Normal visualized intervertebral neuroforamina. The soft tissue structures are unremarkable. RAD/Cerv Spine 4 or 5 Views IMPRESSION: Degenerative changes of the visualized cervical spine. Electronically Signed: Jeff Holbrook DO at 15:26 EDT Tel [phone], Service support ,
== END ==
PROVIDERS: PCP Family Medicine; Referring Provider Chiropractor; Visit Provider Chiropractor
DX: S13.4XXA Sprain of ligaments of cervical spine, initial encounter (principal); X58.XXXA Exposure to other specified factors, initial encounter; Y93.9 Activity, unspecified; Y92.9 Unspecified place or not applicable; Y99.9 Unspecified external cause status
CPT/HCPCS: 72050

== ENCOUNTER 2021-05-24 21:47 | Emergency (ER) | payer MEDICAID, SELFPAY ==
[2021-05-24 21:47] VITALS: BP 146/90; PULSE 94; RESP 16; TEMP 36.6; O2SAT 99; BMI 34.9
[2021-05-24] MEDS: Diphth,Pertuss(Acell),Tet Vac 0.5 ML Vial IM (23:17)
[2021-05-24] MEDS: Amox/Clavulanate 875 MG Tablet PO (23:18)
[2021-05-24] MEDS: Lidocaine 1% (20 ml mdv) 20 ML Vial INFILT (23:18)
--- NOTE | 2021-05-24 23:19 | EDS_ITS ---
HPI History of Present Illness Chief Complaint: Bite Informant: patient Narrative Narrative: 45-year-old female presents the emergency room with dog bite to the left arm. She states that it was her brothers mastiff. She does not know her last tetanus shot. She notes 3 areas of laceration and some superficial abrasions to the upper left arm. [facility] Medical History Diabetes Hypertension Home Medications Pravastatin Sodium 20 mg PO DAILY 02/07/15 [History Last Taken Unknown] loratadine [Loratadine] 10 mg PO DAILY 02/07/15 [History Last Taken Unknown] ltqfrhy-bql-pqixq-tenof alafen [Genvoya] 1 tab PO DAILY 06/30/16 [History Last Taken Unknown] ibuprofen 800 mg PO TID PRN PRN #20 tab 07/27/18 [Rx Last Taken Unknown] amoxicillin-pot clavulanate 875 mg PO Q12H #14 tablet 05/24/21 [Rx Last Taken Unknown] Allergy/AdvReac Type Severity Reaction Status Date / Time No Known Allergies Allergy Verified 05/24/21 21:49 Social History (Updated 05/24/21 @ 23:[address] Jesu Edward DO) current gender identity: female Smoking Status: Never smoker ROS ROS ED Constitutional Constitutional ED: Denies chills, fever(s) or weight loss Eyes Eyes: Denies change in vision or diplopia ENT ENT ED: Denies ear pain, rhinorrhea or sore throat Cardiovascular Cardiovascular: Denies chest pain, orthopnea, palpitations or racing heartbeat Respiratory/Chest Respiratory/Chest: Denies cough, dyspnea or orthopnea Gastrointestinal Gastrointestinal: Denies abdominal pain, diarrhea, nausea or vomiting Genitourinary Genitourinary ED: Denies dysuria, hematuria or urinary frequency Musculoskeletal Musculoskeletal: Denies arthralgias or myalgias Integumentary Reports other Details: See HPI ; Denies abscess or rash Neurologic Neurologic: Denies headache(s) or weakness Psychiatric Psychiatric: Denies anxiety, depression, suicidal ideation or suicidal thoughts Endocrine Endocrinology: Denies polydipsia, polyphagia or polyuria Allergic/Immunologic Allergic/Immunologic ED: Denies mouth swelling, tongue swelling or urticaria EXAM Physical Exam Const Vital Signs: 05/24/21 21:47 Temperature 97.8 F Temperature Source Temporal Pulse Rate 94 Respiratory Rate 16 Blood Pressure 146/90 H Blood Pressure Mean 108 Pulse Ox 99 Oxygen Delivery Method Room Air Positive well nourished, well developed and obese General Appearance ED: well developed Nutritional Appearance: obese HEENT Reports normocephalic, head/scalp atraumatic and moist mucous membranes; Denies TM's clear HEENT Narrative: Normal oropharyngeal exam atraumatic Tympanic Membrane ED: Negative for TM's clear Eyes PERRL and EOMs intact bilaterally Neck no lymphadenopathy, supple and no JVD Resp normal respiratory effort and clear to auscultation bilaterally Cardio regular rate, regular rhythm and no murmurs GI normal to inspection, nondistended, normoactive bowel sounds and non-tender Palpation: soft Back/Spine no CVA tenderness and normal ROM Extremity Extremity Narrative: Please see skin exam General Extremety ED: Yes tenderness; Negative for edema General Extremity: Negative for edema Neuro oriented x3 and CN's II-XII intact bilaterally Sensorium / Orientation: alert Motor Exam: strength 5/5 throughout Psych mental status grossly normal Mood & Affect: Negative for depressed or tearful Skin no rashes or lesions noted Skin Narrative: There is a 1 cm posterior left upper arm that is gaping with exposed fat. There is 1/2 cm laceration over the biceps that is gaping with exposed fat. There is 1/2 cm laceration over the lateral aspect of the upper arm that appears superficial in nature. There are surrounding superficial abrasions. MDM MDM MDM Narrative Medical decision making narrative: Patient was given Tdap for tetanus. She was started on Augmentin. Wounds were washed with Shur-Clens and explored. The posterior laceration was closed using 2 simple erupted 4-0 Ethilon sutures with the wound edges loosely approximated. The biceps laceration was closed using a single simple interrupted 4-0 Ethilon suture with the wound edges loosely approximated. Wounds were dressed. No foreign bodies were noted in the wounds. Stitches should be removed 7 to 10 days Discharge Plan Triage Chief Complaint: Bite ED Provider: Jesu Edward Dx/Rx/DC Orders Clinical Impression: Dog bite of left arm Instructions: ED Dog Bite Prescriptions: New amoxicillin-pot clavulanate [amoxicillin-pot clavulanate] 875 MG tablet 875 mg PO Q12H Qty: 14 RF: 0 No Action loratadine [Allergy Relief (loratadine)] 10 MG tablet 10 mg PO DAILY RF: 0 Pravastatin Sodium 20 MG tablet 20 mg PO DAILY RF: 0 qlhgjcr-qeq-cuwrw-tenof alafen [Genvoya] 1 EACH tablet 1 tab PO DAILY RF: 0 ibuprofen 800 MG tablet 800 mg PO TID PRN PRN (Reason: Pain) Qty: 20 RF: 0 Primary Care Provider: Ministerio Irene Referrals: Ministerio Irene MD [Primary Care Provider] - 10 Day for suture removal (in 7-10 days for suture removal) Disposition Disposition: Home, Self Care
== END 2021-05-24 23:37 | disposition home or self-care (01) ==
PROVIDERS: Emergency Provider Emergency Medicine; PCP Family Medicine
DX: S41.152A Open bite of left upper arm, initial encounter (principal); Z23 Encounter for immunization; W54.0XXA Bitten by dog, initial encounter; Y93.9 Activity, unspecified; Y92.9 Unspecified place or not applicable; Y99.9 Unspecified external cause status; E11.9 Type 2 diabetes mellitus without complications; I10 Essential (primary) hypertension; Z79.899 Other long term (current) drug therapy
CPT/HCPCS: 12001; 90715; 99283; A4216

== ENCOUNTER → 2022-02-17 | Outpatient (CLI) | payer MEDICAID, SELFPAY ==
--- NOTE | 2022-02-17 15:32 | RAD_ITS ---
STUDY: X-RAY - LEFT KNEE REASON FOR EXAM: Left knee pain for one week. TECHNIQUE: 4 view(s) of the knee. COMPARISON: None. FINDINGS: Normal visualized distal femur. Normal visualized proximal tibia and fibula. Normal proximal tibiofibular articulation. Normal medial femorotibial compartment. Normal lateral femorotibial compartment. Normal patellofemoral articulation. The soft tissue structures are unremarkable. RAD/Knee 4 or More Views IMPRESSION: Unremarkable x-ray examination of the left knee. Electronically Signed: Leif Peñaloza MD at 9:19 EDT ,
== END | disposition home or self-care (01) ==
LOC: RAD 15:28
PROVIDERS: PCP Family Medicine; Visit Provider Chiropractor
DX: S83.92XA Sprain of unspecified site of left knee, initial encounter (principal)
CPT/HCPCS: 73564